=== PATIENT | female | born 1930 | race Caucasian/White ===

== ENCOUNTER 2017-02-02 18:00 | Inpatient (IN) | payer OTHER ==
[~2017-02-02] VITALS: Ht 165.1 cm; Wt 48.5 kg
[~2017-02-02 18:00] MED LIST: AMLODIPINE BESY10 MG PO; ATENOLOL50 MG PO; LEVOTHYROXIN0.112 M1 PO; LORAZEPAM0.5 MG PO; ZOLPIDEM TARTRAT5 MG PO
--- NOTE | 2017-02-02 18:10 | ED GENERAL ADULT ---
History of Present Illness General Chief Complaint: Fall Stated Complaint: FALL Source: patient, family Exam Limitations: patient's age, clinical condition Vital Signs & Intake/Output Vital Signs & Intake/Output Vital Signs Date Time Temp Pulse Resp B/P Pulse O2 O2 Flow FiO2 Ox Delivery Rate 02/03 2040 98.7 81 14 187/74 98 Nasal 2.0L Cannula 02/03 2032 98.2 79 20 187/74 99 Nasal 2.0L Cannula 02/02 1822 76 14 198/81 97 Room Air Allergies Coded Allergies: Penicillins (UNKNOWN 02/02/17) red dye (UNKNOWN 02/02/17) Reconcile Medications Amlodipine Besylate 5 MG TABLET 1 TAB PO DAILY HEART/BP (Reported) Atenolol 50 MG TABLET 1 TAB PO DAILY HEART/BP (Reported) Bisacodyl (Laxative) 5 MG TABLET 1 TAB PO AD GI (Reported) Docusate Sodium (Colace) 100 MG CAPSULE 1 CAP PO DAILY STOOL SOFTENER ( Reported) Furosemide 40 MG TABLET 1 TAB PO DAILY DIURETIC/BP (Reported) Levothyroxine Sodium 112 MCG TABLET 1 TAB PO DAILY THYROID (Reported) Loratadine (Claritin) 10 MG TABLET 1 TAB PO PRN ALLERGIES (Reported) Mometasone Furoate (Nasonex) 50 MCG SPRAY.PUMP 1-2 SPRAY KRISTIE AD PRN ALLERGIES/ NASAL CONGESTION (Reported) Triage Nurses Notes Reviewed? yes Onset: Abrupt Duration: hour(s): Timing: recent history HPI: 02/02/17 6:37 PM 86-year-old female presents to the emergency department status post fall. The patient has a history of CVA. She status post stroke with right-sided weakness. She was in rehabilitation at the nursing facility. She had a mechanical slip and fall and injured her right hip. The onset of the symptoms were abrupt, the duration was just today, the severity was significant as her symptoms required her to come to the emergency department for care. On physical exam she has a 1/ 4 inch superficial right sided occipital laceration. This does not require stitches. He was treated with bacitracin. She has no neck tenderness. She does have significant right-sided hip tenderness. The right hip is foreshortened and externally rotated. She has no abdominal pain or tenderness. (AARON MIXON DO) Past History Medical History Any Pertinent Medical History? see below for history Neurological: NONE EENT: NONE Cardiovascular: hypertension Respiratory: NONE Gastrointestinal: NONE Hepatic: NONE Renal: NONE Musculoskeletal: NONE Psychiatric: NONE Endocrine: hypothyroidism Blood Disorders: NONE Surgical History Surgical History: unobtainable Psychosocial History What is your primary language [place]ian Family History Hx Contributory? No (AARON MIXON DO) Review of Systems Review of Systems Constitutional: Denies: fever. EENTM: Denies: visual changes. Respiratory: Denies: short of breath. Cardiovascular: Denies: chest pain. GI: Denies: abdominal pain. Genitourinary: Reports: no symptoms. Musculoskeletal: Reports: see HPI. Skin: Reports: see HPI. Neurological/Psychological: Denies: headache. Hematologic/Endocrine: Denies: bleeding. (AARON MIXON DO) Physical Exam Physical Exam General Appearance: alert, awake, anxious, mild distress Head: active bleeding Eyes: Bilateral: normal appearance, PERRL, EOMI. Ears, Nose, Throat: normal ENT inspection Neck: normal inspection, supple, full range of motion Respiratory: normal breath sounds, chest non-tender, no respiratory distress Cardiovascular: regular rate/rhythm Peripheral Pulses: 4+ dorsalis pedis (R), 4+ dorsalis pedis (L) Gastrointestinal: non-tender Back: decreased range of motion Extremities: tenderness Neurologic/Psych: no motor/sensory deficits, awake, alert Skin: intact, normal color, warm/dry Core Measures ACS in differential dx? No CVA/TIA Diagnosis: No Severe Sepsis Present: No Septic Shock Present: No (AARON MIXON DO) Progress Differential Diagnoses I considered the following diagnoses in my evaluation of the patient: [Hip fracture intracranial bleed, other occult injuries] Plan of Care: Orders Procedure Date/time Status Nothing by Mouth 02/03 B Active CBC WITHOUT DIFFERENTIAL 02/03 06 Active BASIC ELECTROLYTES PLUS BUN&CR 02/03 06 Active Regular Diet 02/02 D Complete Saline Lock 02/02 2133 Active Pathway - chart 02/02 2133 Active House Staff 02/02 2133 Active Patient Data 02/02 2127 Active OXYGEN SETUP (GEN) 02/02 2035 Active Saline Lock 02/02 2035 Active Admit to inpatient 02/02 2035 Active Vital Signs 02/02 2035 Active Activity/Ambulation 02/02 2035 Active Code Status 02/02 2035 Active URINALYSIS 02/02 2033 Complete Lab Add-on Test 02/02 2009 Active Add-on Test (ER Only) 02/02 192 Active TROPONIN LEVEL 02/02 185 Complete Pak, Insertion/Removal/Asses 02/03 1836 Active CULTURE,URINE 02/03 1836 Active PROTHROMBIN TIME 02/03 1836 Complete COMPREHENSIVE METABOLIC PANEL 02/03 1836 Complete CBC WITHOUT DIFFERENTIAL 02/03 1836 Complete TYPE & SCREEN (NOT X-MATCH) 02/03 1836 Active EKG 02/02 180 Active VTE Mechanical Prophylaxis 02/02 UNK Active Current Medications Sig/[place] Start time Last Medication Dose Stop Time Status Admin Atenolol 50 MG DAILY 02/03 1000 UNVr (Tenormin) Dextrose/Sodium 1,000 ML Q13H 02/03 0000 UNVr Chloride (D5-Normal Saline) Oxycodone HCl 5 MG Q6 02/02 235 UNVr (Roxicodone) Heparin Sodium 5,000 UNIT Q8 02/02 2200 UNVr (Porcine) Senna/Docusate Sodium 2 TAB AT BEDTIME 02/02 2200 UNVr (Senokot S) Acetaminophen 650 MG Q6P PRN 02/02 214 UNVr (Tylenol) Diphenhydramine HCl 25 MG Q6P PRN 02/02 214 UNVr (Benadryl) Morphine Sulfate 2 MG Q4P PRN 02/02 2145 UNVr (Morphine) Polyethylene Glycol 17 GM AT BEDTIME PRN 02/02 2145 UNVr (Miralax) Prochlorperazine 10 MG Q6P PRN 02/02 2145 UNVr (Compazine) Morphine Sulfate 4 MG ONCE ONE 02/02 2130 UNVr (Morphine) 02/02 2131 Laboratory Tests 02/02/172104: Urinalysis HEAVY H, Urine Color STRAW, Urine Clarity CLDY H, Urine pH 8.0, Ur Specific [place] 1.015, Urine Protein NEG, Urine Ketones TRACE H, Urine Nitrite NEG, Urine Bilirubin NEG, Urine Urobilinogen 0.2, Ur Leukocyte Esterase NEG, Ur Microscopic SEDIMENT EXAMINED, Urine RBC 1-3, Urine WBC RARE, Ur Epithelial Cells RARE, Urine Hemoglobin TRACE-INTACT, Urine Glucose NEG 02/02/171856: Anion Gap 10, Estimated GFR > 60, BUN/Creatinine Ratio 28.3 H, Glucose 111 H, Calcium 9.9, Total Bilirubin 0.7, AST 28, ALT 44, Alkaline Phosphatase 92, Troponin I 0.01, Total Protein 7.5, Albumin 4.6, Globulin 2.9, Albumin/Globulin Ratio 1.6, PT 11.9, INR 1.13, CBC w Diff MAN DIFF ORDERED, RBC 4.64, MCV 95.9, MCH 32.1 H, RDW 13.6, MPV 6.2 L, Gran % 89.2 H, Lymphocytes % 5.5 L, Monocytes % 4.8, Eosinophils % 0.3, Basophils % 0.2, Absolute Granulocytes 18.9 H, Segmented Neutrophils 84 H, Absolute Lymphocytes 1.2, Lymphocytes 5 L, Monocytes 11 H, Absolute Monocytes 1.0 H, Absolute Eosinophils 0.1, Absolute Basophils 0, Platelet Estimate INCREASED, Normal RBC Morphology N, PUBS MCHC 33.5 Microbiology 02/02 2105 URINE ROUT: Urine Culture - RECD Initial ED EKG: pending (AARON MIXON DO) Departure Departure Disposition: STILL A PATIENT Condition: Stable Referrals: RIGO JAMESON MD (PCP/Family) Departure Forms: Customer Survey General Discharge Information Comments X-ray of the right hip - PATIENT: CAYLAApril PRESENT AGE: 86 PATIENT ACCOUNT NO: [id number] : [birth year] LOCATION: [facility] ORDERING PHYSICIAN: AARON MIXON DO SERVICE DATE: 02/02/17 EXAM TYPE: RAD - XRY-CHEST XRAY, ONE VIEW ONLY; XRY-HIP 2-3 VIEWS, RIGHT EXAMINATION:\H\ \N\XR CHEST RIGHT HIP CLINICAL INFORMATION: Fall. Aspiration. COMPARISON: None TECHNIQUE: Supine frontal view of the chest 2 views right hip. FINDINGS: Chest: Mild rotation to the left. Slightly tortuous aorta. The cardiac size skip and vasculature are within normal limits. There is no consolidation. No pleural fluid or pneumothorax. The diaphragm contour is smooth. No acute displaced thoracic fracture demonstrated Right hip: There is a displaced subcapital right femoral fracture. The distal fracture fragment is displaced superiorly and laterally. No definite underlying lesion. The femoral head contour appears smooth. Sclerotic area in the right iliac bone may be a bone island but is nonspecific. IMPRESSION: Displaced subcapital right proximal femoral fracture No pneumonia or pneumothorax DICTATED BY: MIKIE MONROE MD DATE/TIME DICTATED:02/02/171946 BOOM OPERATOR:HELEN DATE/TIME TRANSCRIBED:02/02/171946 CONFIDENTIAL, DO NOT COPY WITHOUT APPROPRIATE AUTHORIZATION. <Electronically signed in Other Vendor System> SIGNED BY: MIKIE MONROE MD 02/02/171952 The patient was signed out to Dr. Leon at 7 PM. Labs were pending. She received IV fluids and IV morphine for pain control. (AARON MIXON DO) Departure Clinical Impression Primary Impression: Hip fracture Secondary Impressions: Fall, Leukocytosis, unspecified Admission Note Spoke With: DESTINY GARCIA MD Documentation of Exam: Documentation of any treatments & extenuating circumstances including Concerns Regarding Discharge (functional status, medication knowledge or non-compliance, living conditions, etc.) that warrant an admission rather than observation: Nothing by mouth IV analgesia follow cultures medical clearance orthopedic evaluation and management for fracture continuing care discharge planning (MARIA D LEON MD) Critical Care Note Critical Care Note Critical Care Time: 30-74 min (AARON MIXON DO)
[2017-02-02] MEDS ORDERED: FUROSEMIDE40 M1 PO (18:29)
[2017-02-02] MEDS ORDERED: ATENOLOL50 M1 PO (18:29)
[2017-02-02] MEDS ORDERED: CLARITIN10 M1 PO (18:30)
[2017-02-02] MEDS ORDERED: AMLODIPINE BESYL5 M1 PO (18:30)
[2017-02-02] MEDS ORDERED: LEVOTHYROXINE112 MCG PO (18:30)
[2017-02-02] MEDS ORDERED: NASONEX17 GM NAS (18:31)
[2017-02-02] MEDS ORDERED: COLACE100 M1 PO (18:31)
[2017-02-02] MEDS ORDERED: [UNRECOGNIZED DRUG - OTHER] AD (18:44)
[2017-02-02] MEDS ORDERED: LAXATIVE PO (19:16)
[2017-02-02 19:21] LABS: ABSOLUTE BASOPHIL COUNT 0 /CUMM (0.0-0.2); ABSOLUTE EOSINOPHIL COUNT 0.1 /CUMM (0.0-0.7); ABSOLUTE GRANULOCYTE CT 18.9 /CUMM (1.4-6.5); ABSOLUTE LYMPH COUNT 1.2 /CUMM (1.2-3.4); BASOPHIL % 0.2 % (0.0-2.0); EOSINOPHIL % 0.3 % (0-5); GRANULOCYTE % 89.2 % (42.2-75.2); HEMATOCRIT 44.5 % (37-47); MEAN CORPUSCULAR HGB 32.1 PG (27.0-31.0); MEAN CORPUSCULAR HGB CONC 33.5 G/DL (33.0-37.0); MEAN CORPUSCULAR VOLUME 95.9 FL (81.0-99.0); MEAN PLATELET VOLUME 6.2 FL (7.4-10.4); PLATELET COUNT 814 /CUMM (130-400); RBC DISTRIBUTION WIDTH 13.6 % (11.5-14.5); RED BLOOD CELL CT 4.64 /CUMM (4.20-5.40); WHITE BLOOD CELL COUNT 21.2 /CUMM (4.8-10.8)
--- NOTE | 2017-02-02 19:48 | CT SCAN REPORT ---
EXAMINATION: CT PELVIS WITHOUT CONTRAST CLINICAL INFORMATION: Fall. Trauma. COMPARISON: None TECHNIQUE: Helical scanning was performed with submillimeter collimation through the pelvis. Sagittal and coronal multiplanar 2-D reconstructions were obtained. DLP: 1001 mGy-cm FINDINGS: PELVIS: There is a displaced subcapital right femoral neck fracture. There is superior and ventral displacement of the distal fracture fragment. The articular surface of the femoral head articulates with the acetabulum and appears primarily intact. The intratrochanteric region appears intact. There is no disruption of the SI joints symphysis or left hip. There is no other acute fracture. There are perineural cysts in the sacrum. There is an irregular sclerotic focus in the right iliac bone near the SI joint perhaps a bone island. There are degenerative changes in the visualized lower spine. There is no evidence of hemoperitoneum. There is no suspicious pelvic mass. A balloon catheter decompresses the urinary bladder. The uppermost images include some circumscribed low attenuating lesions in the lower right lobe liver likely cysts. There may be a cyst partially included arising from the ventral lower left kidney. There is atherosclerotic calcification. I suspect pelvic floor relaxation. The region of the uterus is not well evaluated. IMPRESSION: Displaced subcapital right proximal femoral fracture
--- NOTE | 2017-02-02 19:53 | RADIOLOGY REPORT ---
EXAMINATION:\H\ \N\XR CHEST RIGHT HIP CLINICAL INFORMATION: Fall. Aspiration. COMPARISON: None TECHNIQUE: Supine frontal view of the chest 2 views right hip. FINDINGS: Chest: Mild rotation to the left. Slightly tortuous aorta. The cardiac size skip and vasculature are within normal limits. There is no consolidation. No pleural fluid or pneumothorax. The diaphragm contour is smooth. No acute displaced thoracic fracture demonstrated Right hip: There is a displaced subcapital right femoral fracture. The distal fracture fragment is displaced superiorly and laterally. No definite underlying lesion. The femoral head contour appears smooth. Sclerotic area in the right iliac bone may be a bone island but is nonspecific. IMPRESSION: Displaced subcapital right proximal femoral fracture No pneumonia or pneumothorax
--- NOTE | 2017-02-02 19:53 | CT SCAN REPORT ---
EXAMINATION: CT HEAD AND CERVICAL SPINE WITHOUT CONTRAST CLINICAL INFORMATION: Status post fall. Evaluate for acute intracranial hemorrhage. COMPARISON: None. TECHNIQUE: Contiguous axial imaging was performed from the thoracic inlet to the vertex without intravenous administration of contrast. DLP: 920 mGy-cm. FINDINGS: Head: No acute intracranial abnormality. No acute intracranial hemorrhage, mass or mass effect or abnormal extra-axial fluid collections. The density within the dural venous sinuses is within normal limits. The ventricles are normal in size, without hydrocephalus. There are no focal areas of hypoattenuation within a vascular distribution to suggest acute transcortical ischemia. The basilar cisterns are patent. No acute calvarial abnormality is identified. Soft tissues appear unremarkable. The imaged paranasal sinuses and mastoid air cells are well aerated. Cervical spine: Images of the cervical spine are somewhat limited secondary to artifacts, notably through the C2 vertebral body. The cortical step-off identified along the anterior aspect of C2 on series 602, image 33 does not persist on coronal or axial CT images of the cervical spine and is favored corresponds to artifact. There is moderate to severe multilevel degenerative disc disease of the cervical spine, most significant at the atlantoaxial articulation as well as at C5-C6 and C6-C7. No acute cervical spine fracture is identified. Cervical spine alignment appears grossly maintained. Prevertebral soft tissues are within normal limits. Incidental note is made of fusion of the right facets of C2-C4, likely secondary to underlying degenerative changes of the cervical spine. IMPRESSION: 1. No acute intracranial abnormality. 2. Multilevel degenerative changes of the cervical spine without evidence of acute cervical spine fracture or subluxation.
[2017-02-02 20:09] LABS: PT 11.9 SEC (9.4-12.5)
--- NOTE | 2017-02-02 21:34 | Cons- Orthopedic ---
SORIN SMALLS 02/02/17 2128: General Information and HPI Consulting Request Date of Consult: 02/02/17 Requested By: Emergency department staff Reason for Consult: Right hip fracture Source of Information: patient, family Exam Limitations: unable to give history, confusion, poor historian History of Present Illness: This is an 86-year-old female status post an unwitnessed fall at a assisted living facility. The patient was seen and really can't remember falling or what caused her fall. She activated her life alert system and was brought to the emergency department by EMS. She complains of some right lower extremity pain as well as a minor headache. She had no other complaints at the current time. Per the family she had been feeling somewhat weak over the past few days ago for no other additional information with regards to this episode. Allergies/Medications Allergies: Coded Allergies: Penicillins (UNKNOWN 02/02/17) red dye (UNKNOWN 02/02/17) Home Med List: Amlodipine Besylate 5 MG TABLET 1 TAB PO DAILY HEART/BP (Reported) Atenolol 50 MG TABLET 1 TAB PO DAILY HEART/BP (Reported) Bisacodyl (Laxative) 5 MG TABLET 1 TAB PO AD GI (Reported) Docusate Sodium (Colace) 100 MG CAPSULE 1 CAP PO DAILY STOOL SOFTENER ( Reported) Furosemide 40 MG TABLET 1 TAB PO DAILY DIURETIC/BP (Reported) Levothyroxine Sodium 112 MCG TABLET 1 TAB PO DAILY THYROID (Reported) Loratadine (Claritin) 10 MG TABLET 1 TAB PO PRN ALLERGIES (Reported) Mometasone Furoate (Nasonex) 50 MCG SPRAY.PUMP 1-2 SPRAY KRISTIE AD PRN ALLERGIES/ NASAL CONGESTION (Reported) Past History Medical History Neurological: NONE EENT: NONE Cardiovascular: hypertension Respiratory: NONE Gastrointestinal: NONE Hepatic: NONE Renal: NONE Musculoskeletal: NONE Psychiatric: NONE Endocrine: hypothyroidism Blood Disorders: NONE Surgical History Pertinent Surgical History: unobtainable Psychosocial History Where Do You Live? Assisted Living Smoking Status: Unknown If Ever Smoked ETOH Use: denies use Functional Ability ADLs Independent: dressing, eating, toileting, bathing. Ambulation: independent IADLs Needs Assist: shopping, housework, finances, food prep, telephone, transportation, medication admin. Review of Systems Review of Systems Cardiovascular: Denies: chest pain, palpitations. Respiratory: Denies: cough, short of breath. GI: Denies: abdominal pain, changes in stool. Exam & Diagnostic Data Vital Signs and I&O Vital Signs Date Time Temp Pulse Resp B/P Pulse O2 O2 Flow FiO2 Ox Delivery Rate 02/03 2040 98.7 81 14 187/74 98 Nasal 2.0L Cannula 02/03 2032 98.2 79 20 187/74 99 Nasal 2.0L Cannula 02/02 1822 76 14 198/81 97 Room Air Laboratory Tests 02/025 1857 Chemistry Sodium (137 - 145 mmol/L) 142 Potassium (3.5 - 5.1 mmol/L) 3.8 Chloride (98 - 107 mmol/L) 99 Carbon Dioxide (22 - 30 mmol/L) 33 H Anion Gap (5 - 16) 10 BUN (7 - 17 mg/dL) 17 Creatinine (0.5 - 1.0 mg/dL) 0.6 Estimated GFR (>60 ml/min) > 60 BUN/Creatinine Ratio (7 - 25 %) 28.3 H Glucose (65 - 99 mg/dL) 111 H Calcium (8.4 - 10.2 mg/dL) 9.9 Total Bilirubin (0.2 - 1.3 mg/dL) 0.7 AST (14 - 36 U/L) 28 ALT (9 - 52 U/L) 44 Alkaline Phosphatase (<127 U/L) 92 Troponin I (< 0.11 ng/ml) 0.01 Total Protein (6.3 - 8.2 g/dL) 7.5 Albumin (3.5 - 5.0 g/dL) 4.6 Globulin (1.9 - 4.2 gm/dL) 2.9 Albumin/Globulin Ratio (1.1 - 2.2 %) 1.6 Coagulation PT (9.4 - 12.5 SEC) 11.9 INR (0.90 - 1.19) 1.13 Hematology CBC w Diff MAN DIFF ORDERED WBC (4.8 - 10.8 /CUMM) 21.2 H RBC (4.20 - 5.40 /CUMM) 4.64 Hgb (12.0 - 16.0 G/DL) 14.9 Hct (37 - 47 %) 44.5 MCV (81.0 - 99.0 FL) 95.9 MCH (27.0 - 31.0 PG) 32.1 H RDW (11.5 - 14.5 %) 13.6 Plt Count (130 - 400 /CUMM) 814 H MPV (7.4 - 10.4 FL) 6.2 L Gran % (42.2 - 75.2 %) 89.2 H Lymphocytes % (20.5 - 51.1 %) 5.5 L Monocytes % (1.7 - 9.3 %) 4.8 Eosinophils % (0 - 5 %) 0.3 Basophils % (0.0 - 2.0 %) 0.2 Absolute Granulocytes (1.4 - 6.5 /CUMM) 18.9 H Segmented Neutrophils (42.2 - 75.2 %) 84 H Absolute Lymphocytes (1.2 - 3.4 /CUMM) 1.2 Lymphocytes (20.5 - 51.1 %) 5 L Monocytes (1.7 - 9.3 %) 11 H Absolute Monocytes (0.10 - 0.60 /CUMM) 1.0 H Absolute Eosinophils (0.0 - 0.7 /CUMM) 0.1 Absolute Basophils (0.0 - 0.2 /CUMM) 0 Platelet Estimate (ADEQUATE) INCREASED Normal RBC Morphology N PUBS MCHC (33.0 - 37.0 G/DL) 33.5 Urines Urinalysis HEAVY H Urine Color (YEL,AMB,STR) STRAW Urine Clarity (CLEAR) CLDY H Urine pH (5.0 - 8.0) 8.0 Ur Specific [place] (1.001 - 1.035) 1.015 Urine Protein (NEG,<30 MG/DL) NEG Urine Ketones (NEG) TRACE H Urine Nitrite (NEG) NEG Urine Bilirubin (NEG) NEG Urine Urobilinogen (0.1 - 1.0 EU/dl) 0.2 Ur Leukocyte Esterase (NEG) NEG Ur Microscopic SEDIMENT EXAMINED Urine RBC (0 - 5 /HPF) 1-3 Urine WBC (0 - 2 /HPF) RARE Ur Epithelial Cells (NONE,FEW) RARE Urine Hemoglobin (NEG) TRACE-INTACT Urine Glucose (N MG/DL) NEG Imaging studies showing a displaced right subcapital femoral fracture Physical Exam: Gen.: Alert but confused and in no obvious distress Skin: Warm and dry without jaundice Cardiac: S1-S2 regular Pulmonary: Bilateral breath sounds are equal with good exchange and some upper respiratory congestion clears with cough. Extremities: Bilateral lower extremities were warm without calf tenderness or significant edema. Gross motor and sensory were intact. There is tenderness over the right hip joint with some mild edema. All 4 compartments are soft and the overlying skin was intact. Right lower extremity was slightly shortened but not rotated. Assessment/Plan Assessment/Plan Assessment: 86 old female status post unwitnessed fall who sustained a right femoral fracture. The case was discussed with Dr. Crain. Recommendations: The patient should be admitted to the medical service for optimization and risk stratification. Should the patient be deemed acceptable candidate she'll be brought to the operating theater once cleared. Keep nothing by mouth past midnight Strict bed rest PRN pain medications Care per primary team Problem List: 1. Hip fracture Consult Acknowledgment - Thank you for your consult request. COBY CRAIN MD 02/03/17 1238: Assessment/Plan Consult Acknowledgment - Thank you for your consult request. Attending MD Review Statement Attending Statement Attending Statement: examined this patient, discuss w/resident/PA/NETWORK DESIGNER, discussed with family, reviewed images Attending Assessment/Plan: Patient seen and examined, daughter Guillermina at bedside. Pain controlled, patient very demented. 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 Exam: tender to palpation of right hip; no abrasions or ecchymosis noted. Intact ankle DF/PF/EHL. Sensation reported intact in bilateral feet. No left leg pain or tenderness. Moving bilateral upper extremities without difficulty. A/P: 86yo F with right femoral neck fracture; plan for right hip hemiarthroplasty NWB RLE Pain control maintain cortez Hold anticoagulation, SCDS in bed Plan for OR for right hip hemiarthroplasty with Dr. Manzo; consent obtained from daughter/POA.
--- NOTE | 2017-02-02 21:48 | History & Physical ---
NICOLE SINGLETON,SHERRI 02/02/17 2147: General Information and HPI MD Statement: I have seen and personally examined CAYLAAPRIL A and documented this H&P. The patient is a 86 year old F who presented with a patient stated chief complaint of [FALL]. Source of Information: patient, family Exam Limitations: unable to give history, confusion, poor historian History of Present Illness: This is an 86-year-old female past medical history of right-sided CVA with deficits (2016), dementia, hypertension, hypothyroidism, treated for cellulitis in her lower extremity one month ago, who presents with CC fall. Most of the history is obtained from patient's daughters in the room as patient is a poor historian. Per daughter, she got a call after patient was found on floor. She had been trying to ambulate without her walker and sustained an unwitnessed fall from standing height, subsequently activated life-alert for assistance. This is her third fall since October. Daughters note that patient seems to be getting progressively more confused and requiring more assistance since her CVA. Patient did hit her head but no bladder or bowel incontinence noted. She is unable to provide more details such as dizziness, headache, palpitations or any other symptom. Patient is awake but confused and endorses pain in her right lower extremity. Allergies/Medications Allergies: Coded Allergies: Penicillins (UNKNOWN 02/02/17) red dye (UNKNOWN 02/02/17) Home Med list Amlodipine Besylate 5 MG TABLET 1 TAB PO DAILY HEART/BP (Reported) Atenolol 50 MG TABLET 1 TAB PO DAILY HEART/BP (Reported) Bisacodyl (Laxative) 5 MG TABLET 1 TAB PO AD GI (Reported) Docusate Sodium (Colace) 100 MG CAPSULE 1 CAP PO DAILY STOOL SOFTENER ( Reported) Furosemide 40 MG TABLET 1 TAB PO DAILY DIURETIC/BP (Reported) Levothyroxine Sodium 112 MCG TABLET 1 TAB PO DAILY THYROID (Reported) Loratadine (Claritin) 10 MG TABLET 1 TAB PO PRN ALLERGIES (Reported) Mometasone Furoate (Nasonex) 50 MCG SPRAY.PUMP 1-2 SPRAY KRISTIE AD PRN ALLERGIES/ NASAL CONGESTION (Reported) Compliance With Home Meds: GOOD Past History Travel History Traveled to [place] past 21 day No Medical History Neurological: NONE EENT: NONE Cardiovascular: hypertension Respiratory: NONE Gastrointestinal: NONE Hepatic: NONE Renal: NONE Musculoskeletal: NONE Psychiatric: NONE Endocrine: hypothyroidism Blood Disorders: NONE Tetanus Vaccine: 02/02/17 Surgical History Surgical History: unobtainable Past Family/Social History Psychosocial History Where do you live? Assisted Living Smoking Status: Unknown If Ever Smoked ETOH Use: denies use Illicit Drug Use: denies illicit drug use Functional Ability ADLs Independent: dressing, eating, toileting, bathing. Ambulation: independent IADLs Needs Assist: shopping, housework, finances, food prep, telephone, transportation, medication admin. Review of Systems Review of Systems Constitutional: Reports: no symptoms. Comments Patient is a poor historian as such review of systems not obtainable. She endorses and denies the same complaint within 5 minutes. However, she does insistently endorse pain in her right lower extremity, and some tenderness in her head. Exam & Diagnostic Data Last 24 Hrs of Vital Signs/I&O Vital Signs Date Time Temp Pulse Resp B/P Pulse O2 O2 Flow FiO2 Ox Delivery Rate 02/03 0029 95 Nasal 2.0L Cannula 02/03 0000 Nasal 2.0L Cannula 02/02 2302 99.3 73 20 142/72 97 Nasal 2.0L Cannula 02/02 2040 98.7 81 14 187/74 98 Nasal 2.0L Cannula 02/02 2032 98.2 79 20 187/74 99 Nasal 2.0L Cannula 02/02 1822 76 14 198/81 97 Room Air Intake & Output 02/03 0800 02/03 0000 02/02 1600 Intake Total 1000 Output Total 800 Balance 200 Intake, IV 1000 Intake, Oral 0 Output, Urine 800 Patient 61.235 kg 54.431 kg Weight Physical Exam General Appearance Cooperative, awake, confused not oriented Skin No Significant Lesion HEENT Atraumatic, PERRLA, EOMI Neck Supple Cardiovascular Regular Rate, Normal S1, Normal S2, No Murmurs Lungs Normal Air Movement Abdomen Soft, No Tenderness Neurological Sensation Intact, decreased strength and mvmt in rle. Extremities decreased strength and movement right lower extremity. No erythema noted. Was unable to move patient on her sdie due to severe pain to check for any hematomas on her buttocks Last 24 Hrs of Labs/[place]: Laboratory Tests 02/02/175: Urinalysis HEAVY H, Urine Color STRAW, Urine Clarity CLDY H, Urine pH 8.0, Ur Specific [place] 1.015, Urine Protein NEG, Urine Ketones TRACE H, Urine Nitrite NEG, Urine Bilirubin NEG, Urine Urobilinogen 0.2, Ur Leukocyte Esterase NEG, Ur Microscopic SEDIMENT EXAMINED, Urine RBC 1-3, Urine WBC RARE, Ur Epithelial Cells RARE, Urine Hemoglobin TRACE-INTACT, Urine Glucose NEG 02/02/17 1857: Anion Gap 10, Estimated GFR > 60, BUN/Creatinine Ratio 28.3 H, Glucose 111 H, Calcium 9.9, Total Bilirubin 0.7, AST 28, ALT 44, Alkaline Phosphatase 92, Troponin I 0.01, Total Protein 7.5, Albumin 4.6, Globulin 2.9, Albumin/Globulin Ratio 1.6, PT 11.9, INR 1.13, CBC w Diff MAN DIFF ORDERED, RBC 4.64, MCV 95.9, MCH 32.1 H, RDW 13.6, MPV 6.2 L, Gran % 89.2 H, Lymphocytes % 5.5 L, Monocytes % 4.8, Eosinophils % 0.3, Basophils % 0.2, Absolute Granulocytes 18.9 H, Segmented Neutrophils 84 H, Absolute Lymphocytes 1.2, Lymphocytes 5 L, Monocytes 11 H, Absolute Monocytes 1.0 H, Absolute Eosinophils 0.1, Absolute Basophils 0, Platelet Estimate INCREASED, Normal RBC Morphology N, PUBS MCHC 33.5 Microbiology 02/02 2105 URINE ROUT: Urine Culture - RECD Assessment/Plan Assessment: This is an 86-year-old female past medical history significant for CVA with right-sided deficit, hypertension, hypothyroidism, recent cellulitis, who comes to [facility] s/p unwitnessed fall from standing height in the ECF. ED Workup shows: Chest x-ray with no acute intrathoracic abnormality. CT negative for hemorrhage. CT of spine pelvis and extremity showed displaced subcapital right proximal femur fracture. Vitals: 98.7, 81, 14, 198/81, 97. INR 1.13. CBC: Hemoglobin 14.9, hematocrit 44.5. White count 21.2 BUN/creatinine 17/ 0.6. Negative LFTs. PLAN 1. Fall with displaced subcapital right proximal femur fracture: Patient scheduled for orthopedic intervention in a.m pending medical clearance. INR 1.13. * Nothing by mouth at midnight * Procedure in a.m. * Strict bedrest * Orthopedic consult * Obtain medical clearance 2. Leukocytosis: Patient has white count 21.2. No bands. Likely this is reactive as patient is afebrile and sustained recent trauma. Continue to monitor. * Monitor with CBC * Hold off antibiotics 3. Thrombocytosis: Patient has blood count 814. Likely reactive, but still quite elevated. Continue to monitor closely. * Monitor with CBC 4. Hypertension: Patient's blood pressure 198/81. * Resume home blood pressure regimen DNR/DNI NPO CHEMICAL DVT PPX As Ranked By This Provider Problem List: 1. Fall Core Measures/Miscellaneous Acute Coronary Syndrome ACS Diagnosis: No Cerebrovascular Accident CVA/TIA Diagnosis: No Congestive Heart Failure CHF Diagnosis: No Venous Thromboembolism VTE Risk Factors: Acute medical illness, Age > 40 [facility] prophylaxis d/t: No contraindications No VTE Pharm Prophylaxis d/t: No contraindications VTE Diagnosis: No VTE Type: NONE VTE Confirmed by (Test): NONE Severe Sepsis Severe Sepsis Present: No Septic Shock Septic Shock Present: No Miscellaneous Documentation Attending Case Discussed With: DESTINY GARCIA MD Primary Care Physician: RIGO JAMESON MD Patient sees these Specialists UNKNOWN Level of Patient Care: General Medicine Consults Needed: Consulting Specialty: Orthopedics MEHDI NIÑO MD 02/03/17 0150: Resident Review Statement Resident Statement: examined this patient, discussed with legal summer intern, agreed with legal summer intern, discussed with family, reviewed EMR data (avail), discussed with nursing , discussed with case mgmt, reviewed images, amended to note Other Findings: Lorteta is an 86-year-old woman with a medical history of hypertension hypothyroidism who experienced an unwitnessed fall at an assisted living facility. She is a limited historian. She activated her life alert system in approximately January department by EMS. She may have some right lower extremity pain as well as minor headache she had no other complaints at current time. Her daughters are in the room and provide collateral history stating that they feel that she has been feeling weak over the past few days and cannot provide any other information regards to the fall. Vital signs are stable. Blood pressure 187/74. She is awake alert but confused and in no acute distress. Positive S1- S2. Bilateral breath sounds are present and equal consistent with good airway entry. Tenderness over the right hip joint noted some mild edematous changes. Labs notable for white count 21,000, platelet count of 814,000. Imaging studies revealed displaced subcapital right proximal femoral fracture. We'll admit the patient general medicine floor, ensure adequate pain control, Keep nothing by mouth at midnight. DVT prophylaxis at all times with heparin subcutaneous. Orthopedic surgical consultation. DNR/DNI JOSE SINGLETON,[facility] 02/03/17 0941: Attending MD Review Statement Attending Statement Attending MD Statement: examined this patient, discuss w/resident/PA/MEDICAL ESTHETICIAN, agreed w/resident/PA/MEDICAL ESTHETICIAN, discussed with family, reviewed EMR data (avail)
[2017-02-02 23:02] VITALS: BP 142/72
[2017-02-03 06:19] VITALS: BP 160/72
[2017-02-03 06:48] LABS: ABSOLUTE BASOPHIL COUNT 0.1 /CUMM (0.0-0.2); ABSOLUTE EOSINOPHIL COUNT 0.1 /CUMM (0.0-0.7); ABSOLUTE GRANULOCYTE CT 12.7 /CUMM (1.4-6.5); ABSOLUTE LYMPH COUNT 1.1 /CUMM (1.2-3.4); BASOPHIL % 0.4 % (0.0-2.0); EOSINOPHIL % 0.8 % (0-5); MEAN CORPUSCULAR HGB 32.1 PG (27.0-31.0); MEAN CORPUSCULAR HGB CONC 33.2 G/DL (33.0-37.0); MEAN CORPUSCULAR VOLUME 96.7 FL (81.0-99.0); MEAN PLATELET VOLUME 6.2 FL (7.4-10.4); PLATELET COUNT 696 /CUMM (130-400); RBC DISTRIBUTION WIDTH 13.6 % (11.5-14.5); RED BLOOD CELL CT 4.14 /CUMM (4.20-5.40)
--- NOTE | 2017-02-03 07:21 | PN- Housestaff ---
Subjective Follow-up For: Right femoral neck fracture Subjective: Patient was seen and examined this morning, she is oriented to self, reported right hip pain, denied hip pain, nausea, vomiting, abdominal pain, chest pain. Daughter is at bedside. Patient is nothing by mouth for surgery this evening at 6 PM as she is added onto the OR schedule. Vital signs are stable, no overnight events reported by the nurse. Review of Systems Constitutional: Reports: see HPI. Objective Last 24 Hrs of Vital Signs/I&O Vital Signs Date Time Temp Pulse Resp B/P Pulse O2 O2 Flow FiO2 Ox Delivery Rate 02/03 1623 99.4 70 16 22/60 02/03 1423 99.0 64 18 160/60 97 Nasal 2.0L Cannula 02/03 0859 Nasal 2.0L Cannula 02/03 0800 97 Nasal 2.0L Cannula 02/03 0619 99.5 69 18 160/72 97 Nasal 2.0L Cannula 02/03 0029 95 Nasal 2.0L Cannula 02/03 0000 Nasal 2.0L Cannula 02/02 2302 99.3 73 20 142/72 97 Nasal 2.0L Cannula 02/02 2040 98.7 81 14 187/74 98 Nasal 2.0L Cannula 02/02 2032 98.2 79 20 187/74 99 Nasal 2.0L Cannula 02/02 1822 76 14 198/81 97 Room Air Intake & Output 02/03 1600 02/03 0800 02/03 0000 Intake Total 489 339 0158 Output Total 400 350 800 Balance 250 250 200 Intake, IV 299 636 6323 Intake, Oral 0 0 0 Number 0 Bowel Movements Output, Urine 400 350 800 Patient 61.235 kg 54.431 kg Weight Physical Exam General Appearance: Alert, Cooperative, No Acute Distress Skin: No Rashes, No Breakdown, No Significant Lesion HEENT: Atraumatic, PERRLA, EOMI, Mucous Membr. moist/pink Neck: Supple, No JVD Cardiovascular: Regular Rate, Normal S1, Normal S2, No Murmurs Lungs: Clear to Auscultation, Normal Air Movement Abdomen: Normal Bowel Sounds, Soft, No Tenderness Neurological: Normal Speech, Strength at 5/5 X4 Ext, Normal Tone, Sensation Intact, Cranial Nerves 3-12 NL, Reflexes 2+ Extremities: No Clubbing, No Cyanosis, No Edema, Normal Pulses Assessment/Plan Assessment: Ms. Bepko is 86 year old female with past medical history significant for CVA with right-sided deficit, hypertension, hypothyroidism who presented to ED after an unwitnessed fall from standing height STR and sustained right femoral neck fracture PLAN #Fall with displaced subcapital right proximal femur fracture * Patient was medically clear * Nothing by mouth for hemiarthroplasty at 6 PM this evening * Continue optimal pain control * Orthopedic surgery consultation was obtained, thanks the recommendation #Leukocytosis and thrombocytosis * Needs outpatient workup * No signs of infection #Hypertension * Continue home medication Lasix and Norvasc was added #Hypothyroidism * Continue Synthroid DNR/DNI NPO CHEMICAL DVT PPX Problem List: 1. Fall 2. Leukocytosis, unspecified 3. Hip fracture Pain Ratin Pain Location: Right hip Pain Goal: Pain 4 or less Pain Plan: Severe pain pathway Tomorrow's Labs & Rationales: CBC, CMP Consulting Request: Consulting Specialty: Orthopedics
--- NOTE | 2017-02-03 09:36 | Admission Certification ---
Admission Certification Certification Statement - As attending physician, I certify that at the time of - admission, based on clinical presentation, severity of - symptoms, need for further diagnostic testing and - therapeutic interventions, and risk of adverse outcomes - without in-hospital treatment, in my clinical assessment, - this patient requires an acute hospital stay for a minimum - of two nights or longer. I have also considered psychsocial - factors such as support system, advanced age, financial - issues, cognitive issues, and failed out-patient treatments, - past re-admission history, safety of patient, and lack of - compliance as applicable. Specific rationale supporting this admission is: right hip fracture
--- NOTE | 2017-02-03 09:41 | PN- Att Addend ---
Attending Addendum Attending Brief Note Patient has minimal pain in her right hip. According to the daughter patient is confused more than her baseline. General Appearance: Alert, No Acute Distress Skin: Grossly normal HEENT: PEERLA Neck: Supple, No JVD Cardiovascular: Regular Rate, Normal S1, Normal S2, No Murmurs Lungs: Clear to Auscultation, Normal Air Movement Abdomen: Normal Bowel Sounds, Soft, No Tenderness Neurological: Normal Speech, Strength at 5/5 X4 Ext, Cranial Nerves 3-12 NL, Reflexes 2+ Extremities: No Clubbing, No Cyanosis, No Edema Vascular: Normal Pulses Assessment 86-year-old with history of right-sided CVA, dementia, hypertension having weakness 2 weeks prior to this presentation and possible UTI presenting status post fall likely mechanical. X-ray suggested right hip fracture. Leukocytosis on presentation likely reactive that is now trending down. Patient is otherwise moderate risk for perioperative cardiac morbidity and mortality. There is no indication for further cardiac investigation. Patient is cleared for surgery. Plan Patient medically cleared for surgery Follow urine culture Follow off antibiotics IV hydration pending surgery Minimal pain meds Continue other home meds Start Coumadin postoperative Current Medications Sig/Wisam Start time Last Medication Dose Route Stop Time Status Admin Acetaminophen 650 MG Q6P PRN 02/02 2145 AC PO Atenolol 50 MG DAILY 02/03 1000 AC PO Dextrose/Sodium 1,000 ML Q13H 02/03 0000 AC 02/03 Chloride IV 0006 Diphenhydramine HCl 25 MG Q6P PRN 02/02 2145 AC IV Heparin Sodium 5,000 UNIT Q8 02/02 2200 AC 02/03 (Porcine) SC 0009 Morphine Sulfate 2 MG Q4P PRN 02/02 2145 AC 02/03 IV 0456 Morphine Sulfate 0 .STK-MED ONE 02/02 2133 DC .ROUTE Morphine Sulfate 4 MG ONCE ONE 02/02 2130 DC 02/02 IV 02/02 Morphine Sulfate 2 MG ONCE ONE 02/02 1900 DC 02/02 IV 02/02 Morphine Sulfate 0 .STK-MED ONE 02/02 1855 DC .ROUTE Ondansetron HCl 0 .STK-MED ONE 02/02 1836 DC .ROUTE Oxycodone HCl 5 MG Q6P PRN 02/02 2359 AC PO Polyethylene Glycol 17 GM AT BEDTIME NEED.. 02/02 2145 AC PO Potassium Chloride 10 MEQ ONCE ONE 02/03 0730 DC 02/03 IV 02/03 0731 0824 Prochlorperazine 10 MG Q6P PRN 02/02 2145 AC IV Senna/Docusate Sodium 2 TAB AT BEDTIME 02/02 2200 AC 02/03 PO 0009 Sodium Chloride 1,000 ML ONCE ONE 02/02 1845 DC 02/02 IV 02/03 0124 8 Tetanus/Diphtheria 0 .STK-MED ONE 02/03 2120 DC Toxoids Adsorbed IM Tetanus/Diphtheria 0.5 ML ONCE ONE 02/02 1845 DC 02/02 Toxoids Adsorbed IM 02/02 Laboratory Tests 02/03 Chemistry Sodium (137 - 145 mmol/L) 142 Potassium (3.5 - 5.1 mmol/L) 3.6 Chloride (98 - 107 mmol/L) 103 Carbon Dioxide (22 - 30 mmol/L) 35 H Anion Gap (5 - 16) 4 L BUN (7 - 17 mg/dL) 11 Creatinine (0.5 - 1.0 mg/dL) 0.6 Estimated GFR (>60 ml/min) > 60 BUN/Creatinine Ratio (7 - 25 %) 18.3 Hematology CBC w Diff NO MAN DIFF REQ WBC (4.8 - 10.8 /CUMM) 15.0 H RBC (4.20 - 5.40 /CUMM) 4.14 L Hgb (12.0 - 16.0 G/DL) 13.3 Hct (37 - 47 %) 40.0 MCV (81.0 - 99.0 FL) 96.7 MCH (27.0 - 31.0 PG) 32.1 H RDW (11.5 - 14.5 %) 13.6 Plt Count (130 - 400 /CUMM) 696 H MPV (7.4 - 10.4 FL) 6.2 L Gran % (42.2 - 75.2 %) 85.0 H Lymphocytes % (20.5 - 51.1 %) 7.0 L Monocytes % (1.7 - 9.3 %) 6.8 Eosinophils % (0 - 5 %) 0.8 Basophils % (0.0 - 2.0 %) 0.4 Absolute Granulocytes (1.4 - 6.5 /CUMM) 12.7 H Absolute Lymphocytes (1.2 - 3.4 /CUMM) 1.1 L Absolute Monocytes (0.10 - 0.60 /CUMM) 1.0 H Absolute Eosinophils (0.0 - 0.7 /CUMM) 0.1 Absolute Basophils (0.0 - 0.2 /CUMM) 0.1 PUBS MCHC (33.0 - 37.0 G/DL) 33.2 Urines Urinalysis HEAVY H Urine Color (YEL,AMB,STR) STRAW Urine Clarity (CLEAR) CLDY H Urine pH (5.0 - 8.0) 8.0 Ur Specific [place] (1.001 - 1.035) 1.015 Urine Protein (NEG,<30 MG/DL) NEG Urine Ketones (NEG) TRACE H Urine Nitrite (NEG) NEG Urine Bilirubin (NEG) NEG Urine Urobilinogen (0.1 - 1.0 EU/dl) 0.2 Ur Leukocyte Esterase (NEG) NEG Ur Microscopic SEDIMENT EXAMINED Urine RBC (0 - 5 /HPF) 1-3 Urine WBC (0 - 2 /HPF) RARE Ur Epithelial Cells (NONE,FEW) RARE Urine Hemoglobin (NEG) TRACE-INTACT Urine Glucose (N MG/DL) NEG 02/02 1857 Chemistry Sodium (137 - 145 mmol/L) 142 Potassium (3.5 - 5.1 mmol/L) 3.8 Chloride (98 - 107 mmol/L) 99 Carbon Dioxide (22 - 30 mmol/L) 33 H Anion Gap (5 - 16) 10 BUN (7 - 17 mg/dL) 17 Creatinine (0.5 - 1.0 mg/dL) 0.6 Estimated GFR (>60 ml/min) > 60 BUN/Creatinine Ratio (7 - 25 %) 28.3 H Glucose (65 - 99 mg/dL) 111 H Calcium (8.4 - 10.2 mg/dL) 9.9 Total Bilirubin (0.2 - 1.3 mg/dL) 0.7 AST (14 - 36 U/L) 28 ALT (9 - 52 U/L) 44 Alkaline Phosphatase (<127 U/L) 92 Troponin I (< 0.11 ng/ml) 0.01 Total Protein (6.3 - 8.2 g/dL) 7.5 Albumin (3.5 - 5.0 g/dL) 4.6 Globulin (1.9 - 4.2 gm/dL) 2.9 Albumin/Globulin Ratio (1.1 - 2.2 %) 1.6 Coagulation PT (9.4 - 12.5 SEC) 11.9 INR (0.90 - 1.19) 1.13 Hematology CBC w Diff MAN DIFF ORDERED WBC (4.8 - 10.8 /CUMM) 21.2 H RBC (4.20 - 5.40 /CUMM) 4.64 Hgb (12.0 - 16.0 G/DL) 14.9 Hct (37 - 47 %) 44.5 MCV (81.0 - 99.0 FL) 95.9 MCH (27.0 - 31.0 PG) 32.1 H RDW (11.5 - 14.5 %) 13.6 Plt Count (130 - 400 /CUMM) 814 H MPV (7.4 - 10.4 FL) 6.2 L Gran % (42.2 - 75.2 %) 89.2 H Lymphocytes % (20.5 - 51.1 %) 5.5 L Monocytes % (1.7 - 9.3 %) 4.8 Eosinophils % (0 - 5 %) 0.3 Basophils % (0.0 - 2.0 %) 0.2 Absolute Granulocytes (1.4 - 6.5 /CUMM) 18.9 H Segmented Neutrophils (42.2 - 75.2 %) 84 H Absolute Lymphocytes (1.2 - 3.4 /CUMM) 1.2 Lymphocytes (20.5 - 51.1 %) 5 L Monocytes (1.7 - 9.3 %) 11 H Absolute Monocytes (0.10 - 0.60 /CUMM) 1.0 H Absolute Eosinophils (0.0 - 0.7 /CUMM) 0.1 Absolute Basophils (0.0 - 0.2 /CUMM) 0 Platelet Estimate (ADEQUATE) INCREASED Normal RBC Morphology N PUBS MCHC (33.0 - 37.0 G/DL) 33.5 Vital Signs Date Time Temp Pulse Resp B/P Pulse O2 O2 Flow FiO2 Ox Delivery Rate 02/03 0859 Nasal 2.0L Cannula 02/03 0619 99.5 69 18 160/72 97 Nasal 2.0L Cannula 02/03 0029 95 Nasal 2.0L Cannula 02/03 0000 Nasal 2.0L Cannula 02/02 2302 99.3 73 20 142/72 97 Nasal 2.0L Cannula 02/03 2040 98.7 81 14 187/74 98 Nasal 2.0L Cannula 02/03 2032 98.2 79 20 187/ 99 Nasal 2.0L Cannula 02/022 76 14 198/81 97 Room Air
[2017-02-03 14:23] VITALS: BP 160/60
--- NOTE | 2017-02-03 21:24 | RADIOLOGY REPORT ---
EXAMINATION: XR HIP, RIGHT CLINICAL INFORMATION: Status post right hip hemiarthroplasty. COMPARISON: Plain films of the right hip 02/02/2017. TECHNIQUE: Single AP view of the right hip. FINDINGS: Expected postoperative changes following right hip arthroplasty. No periprosthetic fractures are identified. There is no appreciable dislocation of the right hip. IMPRESSION: Expected postoperative changes following right hip arthroplasty. No immediate mechanical hardware complications. No periprosthetic fractures.
[2017-02-03 22:12] VITALS: BP 122/58
--- NOTE | 2017-02-03 23:21 | PN- Orthopedic ---
Subjective Subjective: POST OP CHECK Procedure: s/p right hip hemiarthroplasty Called by RN that patient refusing to take Coumadin tonight. Also states she refuses to speak. Interviewer witnessed capacity preoperatively in the holding area and patient was conversant with family. Called daughter, Guillermina, who states patient sometimes refuses to speak when she is frustrated, but asking for a medical evaluation as the patient has a hx of CVA (head CT performed yesterday ). Unable to obtain interim history post operatively. Objective Vital Signs and I&Os Vital Signs Date Time Temp Pulse Resp B/P Pulse O2 O2 Flow FiO2 Ox Delivery Rate 02/04 2212 98.0 65 16 122/58 94 Nasal 2.0L Cannula 02/03 1623 99.4 70 16 22/60 02/03 1600 97 Nasal 2.0L Cannula 02/03 1423 99.0 64 18 160/60 97 Nasal 2.0L Cannula 02/03 0859 Nasal 2.0L Cannula 02/03 0800 97 Nasal 2.0L Cannula 02/03 0619 99.5 69 18 160/72 97 Nasal 2.0L Cannula 02/03 0029 95 Nasal 2.0L Cannula 02/03 0000 Nasal 2.0L Cannula Intake & Output 02/03 1600 02/03 0800 02/03 0000 02/02 1600 02/02 0800 02/02 0000 Intake Total 972 114 5425 Output Total 400 350 800 Balance 250 250 200 Intake, IV 928 152 6165 Intake, Oral 0 0 0 Number 0 Bowel Movements Output, Urine 400 350 800 Patient 135 lb 120 lb Weight Physical Exam: Gen: not conversant. Unable to evaluate for orientation. Follows verbal commands. Cor: S1+S2+ Lungs: CTA joao Abd: soft, NT, ND, +BS x4 Ext: right hip dressing C/D/I. Palpable DP/PT pulse to right foot. Foot warm. Dorsiflexion and plantar flexion grossly intact. Results Recent Imaging Studies: IMPRESSION: Expected postoperative changes following right hip arthroplasty. No immediate mechanical hardware complications. No periprosthetic fractures. DICTATED BY: ODALYS DIAZ MD DATE/TIME DICTATED:02/03/172119 SENIOR ACCOUNTING SPECIALIST:HELEN DATE/TIME TRANSCRIBED:02/03/172119 CONFIDENTIAL, DO NOT COPY WITHOUT APPROPRIATE AUTHORIZATION. <Electronically signed in Other Vendor System> SIGNED BY: ODALYS DIAZ MD 02/03/17 2124 Assessment/Plan Assessment/Plan A: 86 year old female with PMH significant for CVA Jul 2016, ambulatory who is s/p right hip hemiarthroplasty after sustaining a mechanical fall. AVSS. Plan: Medicine evaluation for mental status assessment, although, with history of being selectively mute, would favor not performing head CT as patient had one last night. Coumadin 5 mg x1 tonight. Repeat INR in am. PT eval in am, weight bear as tolerated. Care per primary team.
[2017-02-04 05:13] LABS: ABSOLUTE BASOPHIL COUNT 0 /CUMM (0.0-0.2); ABSOLUTE EOSINOPHIL COUNT 0 /CUMM (0.0-0.7); ABSOLUTE GRANULOCYTE CT 13.7 /CUMM (1.4-6.5); ABSOLUTE LYMPH COUNT 0.5 /CUMM (1.2-3.4); ABSOLUTE MONOCYTE COUNT 0.6 /CUMM (0.10-0.60); BASOPHIL % 0 % (0.0-2.0); EOSINOPHIL % 0.1 % (0-5); GRANULOCYTE % 92.2 % (42.2-75.2); HEMATOCRIT 39.7 % (37-47); MEAN CORPUSCULAR HGB 32.3 PG (27.0-31.0); MEAN CORPUSCULAR HGB CONC 33.4 G/DL (33.0-37.0); MEAN CORPUSCULAR VOLUME 96.5 FL (81.0-99.0); MEAN PLATELET VOLUME 6.3 FL (7.4-10.4); PLATELET COUNT 692 /CUMM (130-400); RBC DISTRIBUTION WIDTH 13.5 % (11.5-14.5); RED BLOOD CELL CT 4.12 /CUMM (4.20-5.40); WHITE BLOOD CELL COUNT 14.8 /CUMM (4.8-10.8)
[2017-02-04 05:14] LABS: PT 14.9 SEC (9.4-12.5)
--- NOTE | 2017-02-04 07:06 | Event Note ---
Event Note Event Note: Situation Agitated, more confused after the surgery. Brief Patient had dementia at baseline, underwent hemiarthroplasty this evening. After the surgery she started was very mute. Surgical PA was contacted, I spoke to her - she reported that the patient is selectively mute occasionally, so it might be her usual form and informed that there is no need for CT scan. Later patient became very agitated, started to pull her line, ripped off her cortez catheter. At this point bilteral upper soft restraints are placed. A single dose of Zyprexa is given. Despite these she remianed agitated. A single dose of haldol 1mg is given later. (QTc <475) Assessment and plan * Acute worsening of baseline dementia post operatively - causing " Delirium " * Most probably anesthesia related, othre reasons could be new surrounding/Pain/ cortez catheter * I tried to replace with another cortez as retention could be one of the reasons , but apparently Nurse Elizabeth spoke with her daughter who really dont want that intervention * She was given one additional dose of morphine 2mg as she is not taking oxycodone oral * she was able to take warfarin in the night * CBC, BEP and PT are done early to rule out electrolyte abnormalities causing alteration
[2017-02-04 07:41] VITALS: BP 190/88
--- NOTE | 2017-02-04 07:50 | PN- Orthopedic ---
See Addendum Subjective Subjective: POD #1 s/p right hip hemiarthroplasty for an impacted IT fracture. Confused overnight requiring restraints. Unable to appropriately respond to commands this morning. Daughter to bedside early this morning stating this is her baseline at times. Denies N/V, F/C, CP/SOB. Objective Vital Signs and I&Os Vital Signs Date Time Temp Pulse Resp B/P Pulse O2 O2 Flow FiO2 Ox Delivery Rate 02/04 0000 94 Nasal 2.0L Cannula 02/04 2212 98.0 65 16 122/58 94 Nasal 2.0L Cannula 02/03 1623 99.4 70 16 22/60 02/03 1600 97 Nasal 2.0L Cannula 02/03 1423 99.0 64 18 160/60 97 Nasal 2.0L Cannula 02/03 0859 Nasal 2.0L Cannula 02/03 0800 97 Nasal 2.0L Cannula Intake & Output 02/04 0800 02/04 0000 02/03 1600 02/03 0800 02/03 0000 02/02 1600 Intake Total 600 163 817 0864 Output Total 100 300 400 350 800 Balance 500 -300 250 250 200 Intake, IV 600 610 107 4795 Intake, Oral 0 0 0 Number 0 Bowel Movements Output, Urine 100 300 400 350 800 Patient 135 lb 120 lb Weight Physical Exam: Gen: AAOx3 in NAD Cor: S1+S2+ Lungs: CTA joao Abd: soft, NT, ND, +Bs x4 Ext: right hip dressing C/D/I. No soft tissue mass to suggest hematoma. Palpable DP pulses joao. Feet warm. Thigh compartment soft. Current Medications: Current Medications Sig/Wisam Start time Last Medication Dose Route Stop Time Status Admin Acetaminophen 650 MG Q6P PRN 02/03 2215 AC PO Acetaminophen 1,000 MG .STK-MED ONE 02/03 1751 DC IV 02/03 175 Acetaminophen 650 MG Q6P PRN 02/02 2145 DC PO Amlodipine Besylate 5 MG DAILY 02/04 1000 AC PO Amlodipine Besylate 5 MG DAILY 02/03 1403 DC 02/03 PO 1623 Atenolol 50 MG DAILY 02/04 1000 AC PO Atenolol 50 MG DAILY 02/03 1000 DC 02/03 PO 0944 Dexamethasone 4 MG .STK-MED ONE 02/03 1751 DC IM 02/03 1752 Dextrose/Sodium 1,000 ML Q13H 02/04 0200 AC 02/04 Chloride IV 0009 Dextrose/Sodium 1,000 ML Q13H 02/03 0000 DC 02/03 Chloride IV 02/04 0159 1347 Diphenhydramine HCl 25 MG Q6P PRN 02/03 2215 AC 02/04 IV 0109 Diphenhydramine HCl 25 MG Q6P PRN 02/02 2145 DC IV Fentanyl Citrate 250 MCG .STK-MED ONE 02/03 1751 DC IM 02/03 1752 Furosemide 40 MG DAILY 02/04 1000 AC PO Furosemide 40 MG DAILY 02/03 1405 DC 02/03 PO 1623 Haloperidol 1 MG ONCE ONE 02/04 0430 DC 02/04 IM 02/04 0431 0421 Heparin Sodium 5,000 UNIT Q8 02/04 0600 AC 02/04 (Porcine) SC 0611 Heparin Sodium 5,000 UNIT Q8 02/02 2200 DC 02/03 (Porcine) SC 0009 Hydromorphone HCl 2 MG .STK-MED ONE 02/03 1750 DC IM 02/03 1751 Levothyroxine Sodium 0.112 MG DAILY AC 02/04 0700 AC PO Levothyroxine Sodium 0.112 MG DAILY AC 02/03 1403 DC 02/03 PO 1622 Morphine Sulfate 2 MG ONCE ONE 02/04 0500 DC 02/04 IV 02/04 0501 0450 Morphine Sulfate 2 MG Q4P PRN 02/03 2215 AC 02/03 IV 2346 Morphine Sulfate 2 MG Q4P PRN 02/02 2145 DC 02/03 IV 1347 Olanzapine 2.5 MG ONCE ONE 02/04 0215 DC 02/04 IM 02/04 0216 0311 Ondansetron HCl 4 MG .STK-MED ONE 02/03 1751 DC IM 02/03 1752 Oxycodone HCl 5 MG Q6P PRN 02/03 2215 AC PO Oxycodone HCl 5 MG Q6P PRN 02/02 2359 DC 02/03 PO 1639 Patient Medication 1 ED .STK-MED ONE 02/03 1306 DC Teaching ED 02/03 1307 Polyethylene Glycol 17 GM DAILY 02/04 1000 AC PO Polyethylene Glycol 17 GM AT BEDTIME NEED.. 02/02 2145 DC PO Prochlorperazine 10 MG Q6P PRN 02/03 2215 AC IV Prochlorperazine 10 MG Q6P PRN 02/025 DC IV Senna/Docusate Sodium 2 TAB AT BEDTIME 02/04 2200 AC PO Senna/Docusate Sodium 2 TAB AT BEDTIME 02/02 2200 DC 02/03 PO 0009 Warfarin Sodium 5 MG COUMADIN 1700 ONE 02/03 2100 DC 02/04 PO 02/03 2101 0008 Results Last 48 Hours of Labs: Laboratory Tests 02/04 02/03 0455 0624 Chemistry Sodium (137 - 145 mmol/L) 140 142 Potassium (3.5 - 5.1 mmol/L) 3.4 L 3.6 Chloride (98 - 107 mmol/L) 101 103 Carbon Dioxide (22 - 30 mmol/L) 30 35 H Anion Gap (5 - 16) 8 4 L BUN (7 - 17 mg/dL) 8 11 Creatinine (0.5 - 1.0 mg/dL) 0.6 0.6 Estimated GFR (>60 ml/min) > 60 > 60 BUN/Creatinine Ratio (7 - 25 %) 13.3 18.3 Coagulation PT (9.4 - 12.5 SEC) 14.9 H INR (0.90 - 1.19) 1.42 H Hematology CBC w Diff NO MAN DIFF REQ NO MAN DIFF REQ WBC (4.8 - 10.8 /CUMM) 14.8 H 15.0 H RBC (4.20 - 5.40 /CUMM) 4.12 L 4.14 L Hgb (12.0 - 16.0 G/DL) 13.3 13.3 Hct (37 - 47 %) 39.7 40.0 MCV (81.0 - 99.0 FL) 96.5 96.7 MCH (27.0 - 31.0 PG) 32.3 H 32.1 H RDW (11.5 - 14.5 %) 13.5 13.6 Plt Count (130 - 400 /CUMM) 692 H 696 H MPV (7.4 - 10.4 FL) 6.3 L 6.2 L Gran % (42.2 - 75.2 %) 92.2 H 85.0 H Lymphocytes % (20.5 - 51.1 %) 3.6 L 7.0 L Monocytes % (1.7 - 9.3 %) 4.1 6.8 Eosinophils % (0 - 5 %) 0.1 0.8 Basophils % (0.0 - 2.0 %) 0 L 0.4 Absolute Granulocytes (1.4 - 6.5 /CUMM) 13.7 H 12.7 H Absolute Lymphocytes (1.2 - 3.4 /CUMM) 0.5 L 1.1 L Absolute Monocytes (0.10 - 0.60 /CUMM) 0.6 1.0 H Absolute Eosinophils (0.0 - 0.7 /CUMM) 0 0.1 Absolute Basophils (0.0 - 0.2 /CUMM) 0 0.1 PUBS MCHC (33.0 - 37.0 G/DL) 33.4 33.2 02/02 02/02 2105 1857 Chemistry Sodium (137 - 145 mmol/L) 142 Potassium (3.5 - 5.1 mmol/L) 3.8 Chloride (98 - 107 mmol/L) 99 Carbon Dioxide (22 - 30 mmol/L) 33 H Anion Gap (5 - 16) 10 BUN (7 - 17 mg/dL) 17 Creatinine (0.5 - 1.0 mg/dL) 0.6 Estimated GFR (>60 ml/min) > 60 BUN/Creatinine Ratio (7 - 25 %) 28.3 H Glucose (65 - 99 mg/dL) 111 H Calcium (8.4 - 10.2 mg/dL) 9.9 Total Bilirubin (0.2 - 1.3 mg/dL) 0.7 AST (14 - 36 U/L) 28 ALT (9 - 52 U/L) 44 Alkaline Phosphatase (<127 U/L) 92 Troponin I (< 0.11 ng/ml) 0.01 Total Protein (6.3 - 8.2 g/dL) 7.5 Albumin (3.5 - 5.0 g/dL) 4.6 Globulin (1.9 - 4.2 gm/dL) 2.9 Albumin/Globulin Ratio (1.1 - 2.2 %) 1.6 Coagulation PT (9.4 - 12.5 SEC) 11.9 INR (0.90 - 1.19) 1.13 Hematology CBC w Diff MAN DIFF ORDERED WBC (4.8 - 10.8 /CUMM) 21.2 H RBC (4.20 - 5.40 /CUMM) 4.64 Hgb (12.0 - 16.0 G/DL) 14.9 Hct (37 - 47 %) 44.5 MCV (81.0 - 99.0 FL) 95.9 MCH (27.0 - 31.0 PG) 32.1 H RDW (11.5 - 14.5 %) 13.6 Plt Count (130 - 400 /CUMM) 814 H MPV (7.4 - 10.4 FL) 6.2 L Gran % (42.2 - 75.2 %) 89.2 H Lymphocytes % (20.5 - 51.1 %) 5.5 L Monocytes % (1.7 - 9.3 %) 4.8 Eosinophils % (0 - 5 %) 0.3 Basophils % (0.0 - 2.0 %) 0.2 Absolute Granulocytes (1.4 - 6.5 /CUMM) 18.9 H Segmented Neutrophils (42.2 - 75.2 %) 84 H Absolute Lymphocytes (1.2 - 3.4 /CUMM) 1.2 Lymphocytes (20.5 - 51.1 %) 5 L Monocytes (1.7 - 9.3 %) 11 H Absolute Monocytes (0.10 - 0.60 /CUMM) 1.0 H Absolute Eosinophils (0.0 - 0.7 /CUMM) 0.1 Absolute Basophils (0.0 - 0.2 /CUMM) 0 Platelet Estimate (ADEQUATE) INCREASED Normal RBC Morphology N PUBS MCHC (33.0 - 37.0 G/DL) 33.5 Urines Urinalysis HEAVY H Urine Color (YEL,AMB,STR) STRAW Urine Clarity (CLEAR) CLDY H Urine pH (5.0 - 8.0) 8.0 Ur Specific [place] (1.001 - 1.035) 1.015 Urine Protein (NEG,<30 MG/DL) NEG Urine Ketones (NEG) TRACE H Urine Nitrite (NEG) NEG Urine Bilirubin (NEG) NEG Urine Urobilinogen (0.1 - 1.0 EU/dl) 0.2 Ur Leukocyte Esterase (NEG) NEG Ur Microscopic SEDIMENT EXAMINED Urine RBC (0 - 5 /HPF) 1-3 Urine WBC (0 - 2 /HPF) RARE Ur Epithelial Cells (NONE,FEW) RARE Urine Hemoglobin (NEG) TRACE-INTACT Urine Glucose (N MG/DL) NEG Assessment/Plan Assessment/Plan A: POD #1 s/p right hip hemiarthroplasty; AVSS. Plan: Daily Coumadin per INR. PT eval today- will likely need STR upon discharge. Encouraged ist. Regular diet. Stop IVF.
--- NOTE | 2017-02-04 09:05 | PN- Housestaff ---
Subjective Follow-up For: Right femoral neck fracture Subjective: Patient seen and examined. She is seen sitting in her chair at bedside maintained in bilateral soft upper extremity restraints. She appears confused, but in no acute distress. When asked if she has any pain or complaints she stares blankly and replies with "where is it?". She is fidgiting in the chair and attempting unsafe ambulation. Review of systems is unobtainable. Overnight patient was reportedly pulling at IV for which the restraints were ordered. Review of Systems Constitutional: Reports: see HPI. Objective Last 24 Hrs of Vital Signs/I&O Vital Signs Date Time Temp Pulse Resp B/P Pulse O2 O2 Flow FiO2 Ox Delivery Rate 02/04 1509 98.1 78 93 130/62 16 Room Air 02/04 0829 113 190/88 02/04 0800 Nasal 2.0L Cannula 02/04 0741 97.3 113 20 190/88 96 Nasal Cannula 02/04 0000 94 Nasal 2.0L Cannula 02/03 2212 98.0 65 16 122/58 94 Nasal 2.0L Cannula Intake & Output 02/04 1600 02/04 0800 02/04 0000 Intake Total 2040 600 Output Total 100 300 Balance 2040 500 -300 Intake, IV 600 600 Intake, Oral 1440 Number 0 Bowel Movements Output, Urine 100 300 Patient 48.534 kg Weight Physical Exam General Appearance: Alert, No Acute Distress Other Physical Findings: General - well developed, well nourished elderly woman appearing agitated and confused HEENT - NCAT, EOMI, PERRL, anicteric sclera CVS - S1, S2 w/o m/g/r Resp - CTA bilaterally GI - Soft, nontender, nondistended, bowel sounds intact Neuro - AAOx0, agitated/confused, CN II - XII grossly intact Ext - normal pulses, no cyanosis/clubbing/edema, bilateral soft upper extremity restraints in place Current Medications: Current Medications Sig/Wisam Start time Last Medication Dose Route Stop Time Status Admin Acetaminophen 650 MG Q6P PRN 02/03 2215 AC PO Acetaminophen 1,000 MG .STK-MED ONE 02/03 1751 DC IV 02/03 1752 Acetaminophen 650 MG Q6P PRN 02/02 2145 DC PO Amlodipine Besylate 5 MG DAILY 02/04 1000 AC 02/04 PO 0829 Amlodipine Besylate 5 MG DAILY 02/03 1403 DC 02/03 PO 1623 Atenolol 50 MG DAILY 02/04 1000 AC 02/04 PO 0830 Atenolol 50 MG DAILY 02/03 1000 DC 02/03 PO 0944 Dexamethasone 4 MG .STK-MED ONE 02/03 1751 DC IM 02/03 1752 Dextrose/Sodium 1,000 ML Q13H 02/04 0200 AC 02/04 Chloride IV 1432 Dextrose/Sodium 1,000 ML Q13H 02/03 0000 DC 02/03 Chloride IV 02/04 0159 1347 Diphenhydramine HCl 50 MG .STK-MED ONE 02/04 0105 DC IM 02/04 0106 Diphenhydramine HCl 25 MG Q6P PRN 02/03 2215 AC 02/04 IV 0109 Diphenhydramine HCl 25 MG Q6P PRN 02/02 214 DC IV Fentanyl Citrate 250 MCG .STK-MED ONE 02/03 1751 DC IM 02/03 1752 Furosemide 40 MG DAILY 02/04 1000 AC 02/04 PO 0830 Furosemide 40 MG DAILY 02/03 1405 DC 02/03 PO 1623 Haloperidol 1 MG ONCE ONE 02/04 0430 DC 02/04 IM 02/04 0431 0421 Heparin Sodium 5,000 UNIT Q8 02/04 0600 AC 02/04 (Porcine) SC 1431 Heparin Sodium 5,000 UNIT Q8 02/02 2200 DC 02/03 (Porcine) SC 0009 Hydromorphone HCl 2 MG .STK-MED ONE 02/03 1750 DC IM 02/03 1751 Levothyroxine Sodium 0.112 MG DAILY AC 02/04 0700 AC PO Levothyroxine Sodium 0.112 MG DAILY AC 02/03 1403 DC 02/03 PO 1622 Morphine Sulfate 2 MG ONCE ONE 02/04 0500 DC 02/04 IV 02/04 0501 0450 Morphine Sulfate 2 MG Q4P PRN 02/03 2215 AC 02/04 IV 1431 Morphine Sulfate 2 MG Q4P PRN 02/02 2145 DC 02/03 IV 1347 Olanzapine 2.5 MG ONCE ONE 02/04 0215 DC 02/04 IM 02/04 0216 0311 Ondansetron HCl 4 MG .STK-MED ONE 02/03 1751 DC IM 02/03 1752 Oxycodone HCl 5 MG Q6P PRN 02/03 2215 AC 02/04 PO 1226 Oxycodone HCl 5 MG Q6P PRN 02/02 2359 DC 02/03 PO 1639 Polyethylene Glycol 17 GM DAILY 02/04 1000 AC 02/04 PO 0830 Polyethylene Glycol 17 GM AT BEDTIME NEED.. 02/02 2145 DC PO Prochlorperazine 10 MG Q6P PRN 02/03 221 AC IV Prochlorperazine 10 MG Q6P PRN 02/02 2145 DC IV Senna/Docusate Sodium 2 TAB AT BEDTIME 02/04 220 AC PO Senna/Docusate Sodium 2 TAB AT BEDTIME 02/02 2200 DC 02/03 PO 0009 Warfarin Sodium 5 MG COUMADIN 1700 ONE 02/04 1700 DC PO 02/04 1701 Warfarin Sodium 5 MG COUMADIN 1700 ONE 02/03 2100 DC 02/04 PO 02/03 2101 0008 Last 24 Hrs of Lab/Dieudonne Results Last 24 Hrs of Labs/Mics: Laboratory Tests 02/04/17 0455: Anion Gap 8, Estimated GFR > 60, BUN/Creatinine Ratio 13.3, PT 14.9 H, INR 1.42 H, CBC w Diff NO MAN DIFF REQ, RBC 4.12 L, MCV 96.5, MCH 32.3 H, RDW 13.5, MPV 6.3 L, Gran % 92.2 H, Lymphocytes % 3.6 L, Monocytes % 4.1, Eosinophils % 0.1, Basophils % 0 L, Absolute Granulocytes 13.7 H, Absolute Lymphocytes 0.5 L, Absolute Monocytes 0.6, Absolute Eosinophils 0, Absolute Basophils 0, PUBS MCHC 33.4 Assessment/Plan Assessment: Patient remains altered and confused after the surgical fixation of her right femoral neck fractures. Restraints were discontinued this afternoon as patient appeared more calm. Present in the room this afternoon at the patients two daughters whom have questions about their mothers clinical condition. Delerium triggers are to be avoid, including benzodiazepines, anticholinergic medications and excessive noctural disturbances. Coumadin was dosed today for a subtherapeutic INR. Post Operative Delerium / History of CVA with rided sided deficit Patient is not oriented to person/place/time and is confused after surgery. This is most likely secondary to the anesthesia utilized during the procedure. Patient dose not exhibit any obvious neurologic deficits. Patient received Haldol and Zyprexa for worsening noctural agitation with minimal benefit. -Avoid excessive sedation and delerium triggers -Avoid benodiazpenes / anticholingergic side effects -Restraints as necessary for pulling at IVs or attempts at unsafe ambulation -Minimize night times awakenings -Rozerm 8mg PO QHS for sleep Right Displaced Subcapital proximal Femoral Fracture S/P Hemiarthroplasty Patient sustained an unwitness mechnical fall for which she sustained a right hip fracture. -General Medicine -S/P Right hemiarthroplasty, POD #1 -Pain Control -D5 1/2 while not eating -Ortho consult -PT evaluation -Daily INR, dose coumadin accordingly Hypertension -Amlodipine 5mg PO Daily -Atenolol 50mg PO Daily -Lasix 40mg PO Daily Hypothyroidism-Levothyroxine 112mcg PO Daily Pain Plan-Acetaminophen/Oxycodone/Morphine; use sparingly Bowel Regimen- Senokot S / Miralax Diet-Clear Liquid Diet, advance as tolerated DVT PPx- subcutaneous heparin Code Status - DNR/DNI Problem List: 1. Fall 2. Hip fracture 3. Acute delirium Pain Ratin Pain Location: Right hip Pain Goal: Pain 7 or less Pain Plan: See assessment Tomorrow's Labs & Rationales: CBC-Leukocytosis BEP-Hypokalemia Consulting Request: Consulting Specialty: Orthopedics
--- NOTE | 2017-02-04 09:34 | Operative Report ---
Operative/Inv Procedure Report Surgery Date: 02/03/17 Name of Procedure: Right hip hemiarthroplasty Pre-Operative Diagnosis: Displaced right femoral neck hip fracture/subcapital Post-Operative Diagnosis: Same Estimated Blood Loss: 50ml to 100ml Surgeon/Follow Up Clerk: Jaden Manzo MD, Sun PUCKETT Anesthesia: general endotracheal tube Implants: [place] accolade hip fracture stem size 3 Standard neck adapter, 43 mm femoral head unipolar Drains: None Specimens: Femoral head, portion of femoral neck Complications: None Condition: Stable Operative Indication: Patient is an 86-year-old woman with a history of dementia fell injuring her right hip. She was found to have a displaced femoral neck/subcapital femur fracture. It was recommended that she consider hemiarthroplasty. Patient power of tax associate attorney consented to the procedure after risks benefits and expectations were discussed which included but were not limited to hip pain, infection, DVT, anesthesia risks, need for subsequent surgery, leg length discrepancy, dislocation Operative/Procedure Note Note: Patient was brought to the operating room and transferred to the operating table. Once under appropriate anesthesia patient was placed into a left lateral decubitus position with right side up. All bony prominences were well-padded. The right lower extremity was prepped and draped in standard fashion and preoperative IV antibiotics given prophylactically. A standard lateral incision was made for anticipated superior approach to the hip. Incision was taken down sharply to the underlying fascia. Fascia was incised in line with the skin incision. The hip was internally rotated the external rotators were put on tension. The piriformis was identified and dissected off of the posterior aspect of the femur at the piriformis fossa area the interval between the gluteus medius minimus tendon and the superior capsule was identified and a retractor was placed in this position. The more inferior retractor was placed to identify the inferior capsule. A T-incision was then made in the capsule and the 2 flaps were reflected posteriorly for later anatomic repair. There was a fairly large fracture hematoma/hemarthrosis. There was comminution at the fracture site. There was a high femoral neck/subcapital hip fracture which was unstable. Fragments of comminuted bone were removed. I needed to make a femoral neck cut in order to remove the femoral head from the acetabular fossa. This was done in standard fashion using the broasim as a guide. This portion of bone was removed. I then was able to remove the femoral head from the acetabular fossa using a corkscrew. Femoral head was measured to size 43. There was no evidence of significant osteoarthritis of the acetabulum. The 7 fossa was evacuated of any hematoma and there was no bony fragments in the fossa. I then turned my attention to preparing the proximal femur. A femoral elevator was placed underneath the proximal femur and posterior retractor was placed I then broached after using the canal finder. I broached up to a size 3 for the Accolade fracture stem/Scott. I left last broach in place and did a closed reduction of the hip to test the stability. I was satisfied with the stability in all planes. I used a -4 neck to start to reduce any tension while placing the femoral head back into the acetabular fossa. However later on I was able to restore leg length and maintain stability with a standard neck adapter. Once I was satisfied with the stability and sizing of the femur, I removed all instruments from the hip copious irrigation femoral canal followed I confirmed integrity of the femoral kent. I then impacted the definitive size 3 Accolade fracture stem with the appropriate anteversion and reproducing position of the previously placed and removed broach. I did a trial reduction with a standard neck and 43 mm femoral head. I was satisfied with the stability. No evidence of impingement or instability to simultaneous internal rotation adduction and flexion to greater than 90. No evidence of anterior instability with simultaneous extension and external rotation. I removed the trial femoral neck and femoral head, dried the trunnion of the prosthesis and then place a definitive standard neck adapter followed by the 43 mm unipolar femoral head in place. The locking mechanism was confirmed. The hip was reduced as atraumatically as possible and again I was satisfied with the stability with the definitive construct. Copious irrigation followed and then copious irrigation followed every level of closure. The capsule T-incision was closed in anatomic fashion. The piriformis was repaired. Fascia was closed with interrupted #1 Vicryl suture. Subcutaneous tissues closed with 2-0 Vicryl in 2 layers and skin was closed with mundo. Appropriate dressings were applied patient was awakened and taken to recovery room in good condition. Discharge Disposition: PACU
--- NOTE | 2017-02-04 13:21 | PN- Att Addend ---
Attending Addendum Attending Brief Note POD #1 s/p right hip hemiarthroplasty for an impacted IT fracture. Confused overnight requiring restraints. Unable to appropriately respond to commands this morning. Had mild worsening mental status last night. Denies N/V, F/C, CP /SOB. Objective Date Time Temp Pulse Resp B/P Pulse O2 O2 Flow FiO2 Ox Delivery Rate 02/04 0000 94 Nasal 2.0L Cannula 02/04 2212 98.0 65 16 122/58 94 Nasal 2.0L Cannula 02/03 1623 99.4 70 16 22/60 02/03 1600 97 Nasal 2.0L Cannula 02/03 1423 99.0 64 18 160/60 97 Nasal 2.0L Cannula 02/03 0859 Nasal 2.0L Cannula 02/03 08 97 Nasal 2.0L Cannula Intake & Output 02/04 0800 02/04 0000 02/03 1600 02/03 0800 02/03 0000 02/02 1600 Intake Total 600 655 930 8508 Output Total 100 300 400 350 800 Balance 500 -300 250 250 200 Intake, IV 600 496 971 8351 Intake, Oral 0 0 0 Number 0 Bowel Movements Output, Urine 100 300 400 350 800 Patient 135 lb 120 lb Weight Physical Exam: Gen: AAOx3 in NAD Cor: S1+S2+ Lungs: CTA joao Abd: soft, NT, ND, +Bs x4 Ext: right hip dressing C/D/I. No soft tissue mass to suggest hematoma. Palpable DP pulses joao. Feet warm. Thigh compartment soft. Mild confusion Current Medications: Current Medications Sig/Wisam Start time Last Medication Dose Route Stop Time Status Admin Acetaminophen 650 MG Q6P PRN 02/03 2215 AC PO Acetaminophen 1,000 MG .STK-MED ONE 02/03 1751 DC IV 02/03 1752 Acetaminophen 650 MG Q6P PRN 02/02 2145 DC PO Amlodipine Besylate 5 MG DAILY 02/04 1000 AC PO Amlodipine Besylate 5 MG DAILY 02/03 1403 DC 02/03 PO 1623 Atenolol 50 MG DAILY 02/04 1000 AC PO Atenolol 50 MG DAILY 02/03 1000 DC 02/03 PO 0944 Dexamethasone 4 MG .STK-MED ONE 02/03 1751 DC IM 02/03 1752 Dextrose/Sodium 1,000 ML Q13H 02/04 0200 AC 02/04 Chloride IV 0009 Dextrose/Sodium 1,000 ML Q13H 02/03 0000 DC 02/03 Chloride IV 02/04 0159 1347 Diphenhydramine HCl 25 MG Q6P PRN 02/03 2215 AC 02/04 IV 0109 Diphenhydramine HCl 25 MG Q6P PRN 02/02 214 DC IV Fentanyl Citrate 250 MCG .STK-MED ONE 02/03 1751 DC IM 02/03 1752 Furosemide 40 MG DAILY 02/04 1000 AC PO Furosemide 40 MG DAILY 02/03 1405 DC 02/03 PO 1623 Haloperidol 1 MG ONCE ONE 02/04 0430 DC 02/04 IM 02/04 0431 0421 Heparin Sodium 5,000 UNIT Q8 02/04 0600 AC 02/04 (Porcine) SC 0611 Heparin Sodium 5,000 UNIT Q8 02/02 2200 DC 02/03 (Porcine) SC 0009 Hydromorphone HCl 2 MG .STK-MED ONE 02/03 1750 DC IM 02/03 1751 Levothyroxine Sodium 0.112 MG DAILY AC 02/04 0700 AC PO Levothyroxine Sodium 0.112 MG DAILY AC 02/03 1403 DC 02/03 PO 1622 Morphine Sulfate 2 MG ONCE ONE 02/04 0500 DC 02/04 IV 02/04 0501 0450 Morphine Sulfate 2 MG Q4P PRN 02/03 2215 AC 02/03 IV 2346 Morphine Sulfate 2 MG Q4P PRN 02/02 2145 DC 02/03 IV 1347 Olanzapine 2.5 MG ONCE ONE 02/04 0215 DC 02/04 IM 02/04 0216 0311 Ondansetron HCl 4 MG .STK-MED ONE 02/03 1751 DC IM 02/03 1752 Oxycodone HCl 5 MG Q6P PRN 02/03 221 AC PO Oxycodone HCl 5 MG Q6P PRN 02/02 2359 DC 02/03 PO 1639 Patient Medication 1 ED .STK-MED ONE 02/03 1306 DC Teaching ED 02/03 1307 Polyethylene Glycol 17 GM DAILY 02/04 1000 AC PO Polyethylene Glycol 17 GM AT BEDTIME NEED.. 02/02 214 DC PO Prochlorperazine 10 MG Q6P PRN 02/03 2215 AC IV Prochlorperazine 10 MG Q6P PRN 02/02 214 DC IV Senna/Docusate Sodium 2 TAB AT BEDTIME 02/040 AC PO Senna/Docusate Sodium 2 TAB AT BEDTIME 02/02 2200 DC 02/03 PO 0009 Warfarin Sodium 5 MG COUMADIN 1700 ONE 02/03 2100 DC 02/04 PO 02/03 2101 0008 Results Last 48 Hours of Labs: Laboratory Tests 02/04 02/03 0455 0624 Chemistry Sodium (137 - 145 mmol/L) 140 142 Potassium (3.5 - 5.1 mmol/L) 3.4 L 3.6 Chloride (98 - 107 mmol/L) 101 103 Carbon Dioxide (22 - 30 mmol/L) 30 35 H Anion Gap (5 - 16) 8 4 L BUN (7 - 17 mg/dL) 8 11 Creatinine (0.5 - 1.0 mg/dL) 0.6 0.6 Estimated GFR (>60 ml/min) > 60 > 60 BUN/Creatinine Ratio (7 - 25 %) 13.3 18.3 Coagulation PT (9.4 - 12.5 SEC) 14.9 H INR (0.90 - 1.19) 1.42 H Hematology CBC w Diff NO MAN DIFF REQ NO MAN DIFF REQ WBC (4.8 - 10.8 /CUMM) 14.8 H 15.0 H RBC (4.20 - 5.40 /CUMM) 4.12 L 4.14 L Hgb (12.0 - 16.0 G/DL) 13.3 13.3 Hct (37 - 47 %) 39.7 40.0 MCV (81.0 - 99.0 FL) 96.5 96.7 MCH (27.0 - 31.0 PG) 32.3 H 32.1 H RDW (11.5 - 14.5 %) 13.5 13.6 Plt Count (130 - 400 /CUMM) 692 H 696 H MPV (7.4 - 10.4 FL) 6.3 L 6.2 L Gran % (42.2 - 75.2 %) 92.2 H 85.0 H Lymphocytes % (20.5 - 51.1 %) 3.6 L 7.0 L Monocytes % (1.7 - 9.3 %) 4.1 6.8 Eosinophils % (0 - 5 %) 0.1 0.8 Basophils % (0.0 - 2.0 %) 0 L 0.4 Absolute Granulocytes (1.4 - 6.5 /CUMM) 13.7 H 12.7 H Absolute Lymphocytes (1.2 - 3.4 /CUMM) 0.5 L 1.1 L Absolute Monocytes (0.10 - 0.60 /CUMM) 0.6 1.0 H Absolute Eosinophils (0.0 - 0.7 /CUMM) 0 0.1 Absolute Basophils (0.0 - 0.2 /CUMM) 0 0.1 PUBS MCHC (33.0 - 37.0 G/DL) 33.4 33.2 02/02 1857 Chemistry Sodium (137 - 145 mmol/L) 142 Potassium (3.5 - 5.1 mmol/L) 3.8 Chloride (98 - 107 mmol/L) 99 Carbon Dioxide (22 - 30 mmol/L) 33 H Anion Gap (5 - 16) 10 BUN (7 - 17 mg/dL) 17 Creatinine (0.5 - 1.0 mg/dL) 0.6 Estimated GFR (>60 ml/min) > 60 BUN/Creatinine Ratio (7 - 25 %) 28.3 H Glucose (65 - 99 mg/dL) 111 H Calcium (8.4 - 10.2 mg/dL) 9.9 Total Bilirubin (0.2 - 1.3 mg/dL) 0.7 AST (14 - 36 U/L) 28 ALT (9 - 52 U/L) 44 Alkaline Phosphatase (<127 U/L) 92 Troponin I (< 0.11 ng/ml) 0.01 Total Protein (6.3 - 8.2 g/dL) 7.5 Albumin (3.5 - 5.0 g/dL) 4.6 Globulin (1.9 - 4.2 gm/dL) 2.9 Albumin/Globulin Ratio (1.1 - 2.2 %) 1.6 Coagulation PT (9.4 - 12.5 SEC) 11.9 INR (0.90 - 1.19) 1.13 Hematology CBC w Diff MAN DIFF ORDERED WBC (4.8 - 10.8 /CUMM) 21.2 H RBC (4.20 - 5.40 /CUMM) 4.64 Hgb (12.0 - 16.0 G/DL) 14.9 Hct (37 - 47 %) 44.5 MCV (81.0 - 99.0 FL) 95.9 MCH (27.0 - 31.0 PG) 32.1 H RDW (11.5 - 14.5 %) 13.6 Plt Count (130 - 400 /CUMM) 814 H MPV (7.4 - 10.4 FL) 6.2 L Gran % (42.2 - 75.2 %) 89.2 H Lymphocytes % (20.5 - 51.1 %) 5.5 L Monocytes % (1.7 - 9.3 %) 4.8 Eosinophils % (0 - 5 %) 0.3 Basophils % (0.0 - 2.0 %) 0.2 Absolute Granulocytes (1.4 - 6.5 /CUMM) 18.9 H Segmented Neutrophils (42.2 - 75.2 %) 84 H Absolute Lymphocytes (1.2 - 3.4 /CUMM) 1.2 Lymphocytes (20.5 - 51.1 %) 5 L Monocytes (1.7 - 9.3 %) 11 H Absolute Monocytes (0.10 - 0.60 /CUMM) 1.0 H Absolute Eosinophils (0.0 - 0.7 /CUMM) 0.1 Absolute Basophils (0.0 - 0.2 /CUMM) 0 Platelet Estimate (ADEQUATE) INCREASED Normal RBC Morphology N PUBS MCHC (33.0 - 37.0 G/DL) 33.5 Urines Urinalysis HEAVY H Urine Color (YEL,AMB,STR) STRAW Urine Clarity (CLEAR) CLDY H Urine pH (5.0 - 8.0) 8.0 Ur Specific [place] (1.001 - 1.035) 1.015 Urine Protein (NEG,<30 MG/DL) NEG Urine Ketones (NEG) TRACE H Urine Nitrite (NEG) NEG Urine Bilirubin (NEG) NEG Urine Urobilinogen (0.1 - 1.0 EU/dl) 0.2 Ur Leukocyte Esterase (NEG) NEG Ur Microscopic SEDIMENT EXAMINED Urine RBC (0 - 5 /HPF) 1-3 Urine WBC (0 - 2 /HPF) RARE Ur Epithelial Cells (NONE,FEW) RARE Urine Hemoglobin (NEG) TRACE-INTACT Urine Glucose (N MG/DL) NEG IMPRESSION 86-year-old with history of right-sided CVA, dementia, hypertension having weakness 2 weeks prior to this presentation and possible UTI presenting status post fall likely mechanical. S/p surg with post op delirum with underlying dementia Leukocytosis and thrombocytosis S/p surg Hypothyroid on meds Plan Follow urine culture Follow off antibiotics Minimal pain meds Continue other home meds Warfain Cont levoxyl Once she is eating then can dc ivf
[2017-02-04 15:09] VITALS: BP 130/62
[2017-02-04 21:51] VITALS: BP 162/70
[2017-02-05 06:58] LABS: ABSOLUTE BASOPHIL COUNT 0.1 /CUMM (0.0-0.2); ABSOLUTE EOSINOPHIL COUNT 0.1 /CUMM (0.0-0.7); ABSOLUTE GRANULOCYTE CT 12.9 /CUMM (1.4-6.5); BASOPHIL % 0.5 % (0.0-2.0); EOSINOPHIL % 0.7 % (0-5); GRANULOCYTE % 85.1 % (42.2-75.2); HEMATOCRIT 37.7 % (37-47); MEAN CORPUSCULAR HGB 32.4 PG (27.0-31.0); MEAN CORPUSCULAR HGB CONC 33.8 G/DL (33.0-37.0); MEAN CORPUSCULAR VOLUME 95.9 FL (81.0-99.0); MEAN PLATELET VOLUME 6.2 FL (7.4-10.4); PLATELET COUNT 666 /CUMM (130-400); PT 32.4 SEC (9.4-12.5); RBC DISTRIBUTION WIDTH 13.6 % (11.5-14.5); RED BLOOD CELL CT 3.93 /CUMM (4.20-5.40)
[2017-02-05 07:21] LABS: WHITE BLOOD CELL COUNT 15.1 /CUMM (4.8-10.8)
[2017-02-05 07:31] VITALS: BP 124/72
--- NOTE | 2017-02-05 08:40 | PN- Housestaff ---
Subjective Follow-up For: Right femoral neck fracture Subjective: Patient seen and examined. She is seen lying flat in bed resting comfortably. She appears to be in no acute distress. She is no longer an bilateral soft upper extremity strengths. She continues to remain delirious, she is not oriented to person/place/time. When asked if she has any pain or any complaints she begins to mumble. Review of systems is unobtainable. No overnight events reported. Review of Systems Constitutional: Reports: see HPI. Objective Last 24 Hrs of Vital Signs/I&O Vital Signs Date Time Temp Pulse Resp B/P Pulse O2 O2 Flow FiO2 Ox Delivery Rate 02/05 1408 99.3 69 18 132/60 98 Room Air 02/05 1000 94 Room Air 02/05 0919 124/72 02/05 0731 99.8 100 18 12472 94 Room Air 02/04 2151 98.6 90 162/70 90 Room Air 02/04 1509 98.1 78 93 130/62 16 Room Air Intake & Output 02/05 1600 02/05 0800 02/05 0000 Intake Total 950 1080 465 Output Total 975 -25 1080 465 Intake, IV 500 600 225 Intake, Oral 450 480 240 Output, Urine 975 Physical Exam General Appearance: No Acute Distress Other Physical Findings: General - well developed, well nourished elderly woman appearing agitated and confused HEENT - NCAT, EOMI, PERRL, anicteric sclera CVS - S1, S2 w/o m/g/r Resp - CTA bilaterally GI - Soft, nontender, nondistended, bowel sounds intact Neuro - AAOx0, agitated/confused, CN II - XII grossly intact Ext - normal pulses, no cyanosis/clubbing/edema, bilateral soft upper extremity restraints in place Current Medications: Current Medications Sig/Wisam Start time Last Medication Dose Route Stop Time Status Admin Acetaminophen 650 MG .STK-MED ONE 02/05 0539 DC PO 02/05 0540 Acetaminophen 650 MG Q6P PRN 02/03 2215 AC 02/05 PO 0600 Amlodipine Besylate 5 MG DAILY 02/04 1000 AC 02/05 PO 0919 Atenolol 50 MG DAILY 02/04 1000 AC 02/05 PO 0919 Dextrose/Sodium 1,000 ML Q20H 02/05 1215 AC Chloride IV Dextrose/Sodium 1,000 ML Q13H 02/04 0200 DC 02/05 Chloride IV 0439 Diphenhydramine HCl 25 MG Q6P PRN 02/03 2215 DC 02/04 IV 0109 Furosemide 40 MG DAILY 02/04 1000 AC 02/05 PO 0919 Heparin Sodium 5,000 UNIT Q8 02/04 0600 AC 02/05 (Porcine) SC 1408 Levothyroxine Sodium 0.112 MG DAILY AC 02/04 0700 AC 02/05 PO 0600 Morphine Sulfate 2 MG Q4P PRN 02/03 2215 DC 02/04 IV 1431 Oxycodone HCl 5 MG Q8P PRN 02/05 1200 AC PO Oxycodone HCl 5 MG Q6P PRN 02/03 2215 DC 02/04 PO 1226 Polyethylene Glycol 17 GM DAILY 02/04 1000 AC 02/05 PO 0919 Potassium Chloride 40 MEQ ONCE ONE 02/05 1200 DC 02/05 PO 02/05 1201 1252 Potassium Chloride 40 MEQ ONCE ONE 02/04 1800 DC 02/04 PO 02/04 1801 2145 Prochlorperazine 10 MG Q6P PRN 02/03 2215 AC IV Ramelteon 8 MG QPM PRN 02/04 1800 AC 02/04 PO 2145 Senna/Docusate Sodium 2 TAB AT BEDTIME 02/04 2200 AC 02/04 PO 2145 Warfarin Sodium 5 MG COUMADIN 1700 ONE 02/04 1700 DC 02/04 PO 02/04 1701 1811 Last 24 Hrs of Lab/Dieudonne Results Last 24 Hrs of Labs/Mics: Laboratory Tests 02/05/17 0625: Anion Gap 4 L, Estimated GFR > 60, BUN/Creatinine Ratio 20.0, PT 32.4 H, INR 3.12 H, CBC w Diff NO MAN DIFF REQ, RBC 3.93 L, MCV 95.9, MCH 32.4 H, RDW 13.6, MPV 6.2 L, Gran % 85.1 H, Lymphocytes % 6.8 L, Monocytes % 6.9, Eosinophils % 0.7, Basophils % 0.5, Absolute Granulocytes 12.9 H, Absolute Lymphocytes 1.0 L, Absolute Monocytes 1.0 H, Absolute Eosinophils 0.1, Absolute Basophils 0.1, PUBS MCHC 33.8 Microbiology 02/05 1335 URINE ROUT: Urine Culture - COLB Assessment/Plan Assessment: Patient continues to remain altered and confused after the surgical fixation of her right femoral neck fracture. Patient had urinary retention of 900 mL as demonstrated with bladder scanner for which she was straight cathed. Urine was sent for analysis and culture. Patient has persistent leukocytosis, chest x-ray was ordered for assessment of possible pulmonary disease. Delirium triggers are to be avoided inpatient for her persistent altered mental status. 5 mg of Coumadin was given yesterday with a resulting INR of 3.12 today, Coumadin is held. Post Operative Delerium / History of CVA with rided sided deficit Patient is not oriented to person/place/time and is confused after surgery. This is most likely secondary to the anesthesia utilized during the procedure. Patient dose not exhibit any obvious neurologic deficits. Patient received Haldol and Zyprexa for worsening noctural agitation with minimal benefit. -Avoid excessive sedation and delerium triggers -Avoid benodiazpenes / anticholingergic side effects -Restraints as necessary for pulling at IVs or attempts at unsafe ambulation -Minimize night times awakenings -Rozerm 8mg PO QHS for sleep Right Displaced Subcapital proximal Femoral Fracture S/P Hemiarthroplasty Patient sustained an unwitness mechnical fall for which she sustained a right hip fracture. -General Medicine -S/P Right hemiarthroplasty, POD #2 -Pain Control -D5 1/2 while not eating -Ortho consult -PT evaluation -Daily INR, dose coumadin accordingly Hypertension -Amlodipine 5mg PO Daily -Atenolol 50mg PO Daily -Lasix 40mg PO Daily Hypothyroidism-Levothyroxine 112mcg PO Daily Pain Plan-Acetaminophen/Oxycodone/Morphine; use sparingly Bowel Regimen- Senokot S / Miralax Diet-Clear Liquid Diet, advance as tolerated DVT PPx- subcutaneous heparin Code Status - DNR/DNI Problem List: 1. Hip fracture Pain Ratin Pain Location: Right hip Pain Goal: Pain 4 or less Pain Plan: See assessment Tomorrow's Labs & Rationales: CBC-postop/infection surveillance BEP-hypokalemia Consulting Request: Consulting Specialty: Orthopedics
--- NOTE | 2017-02-05 10:16 | PN- Orthopedic ---
See Addendum Subjective Subjective: Patient has been experiencing some postoperative delirium, but seems to be showing some slight signs of improvement. Restraints were removed. She is receiving Tylenol only for pain. She seems to be more cooperative at this time. She denies pain, except during dressing change. Objective Vital Signs and I&Os Vital Signs Date Time Temp Pulse Resp B/P Pulse O2 O2 Flow FiO2 Ox Delivery Rate 02/05 0919 124/72 02/05 0731 99.8 100 18 124/72 94 Room Air 02/04 2151 98.6 90 162/70 90 Room Air 02/04 1509 98.1 78 93 130/62 16 Room Air Intake & Output 02/05 1600 02/05 0800 02/05 0000 02/04 1600 02/04 0800 02/04 0000 Intake Total 0482 071 9385 600 Output Total 100 300 Balance 2918 348 9559 500 -300 Intake, IV 600 225 600 600 Intake, Oral 107 703 9703 Number 0 Bowel Movements Output, Urine 100 300 Patient 107 lb Weight Physical Exam: Gen.: Patient is resting, but easily arousable. She is oriented to person, but not place or time. She is more cooperative at this time and follows some commands. Extremities: The right hip dressing was changed. The wound remains clean, dry, and intact with mundo in place. There is no surrounding erythema or drainage. There is mild to moderate thigh swelling, within expected postoperative limits. Right lower extremity is internally rotated and there appears to be of slight foot drop. Strength exam is limited due to mild confusion, but she is able to move both feet against gravity. Results Last 48 Hours of Labs: Laboratory Tests 02/05 02/04 0625 0455 Chemistry Sodium (137 - 145 mmol/L) 138 140 Potassium (3.5 - 5.1 mmol/L) 3.4 L 3.4 L Chloride (98 - 107 mmol/L) 103 101 Carbon Dioxide (22 - 30 mmol/L) 31 H 30 Anion Gap (5 - 16) 4 L 8 BUN (7 - 17 mg/dL) 10 8 Creatinine (0.5 - 1.0 mg/dL) 0.5 0.6 Estimated GFR (>60 ml/min) > 60 > 60 BUN/Creatinine Ratio (7 - 25 %) 20.0 13.3 Coagulation PT (9.4 - 12.5 SEC) 32.4 H 14.9 H INR (0.90 - 1.19) 3.12 H 1.42 H Hematology CBC w Diff NO MAN DIFF REQ NO MAN DIFF REQ WBC (4.8 - 10.8 /CUMM) 15.1 H 14.8 H RBC (4.20 - 5.40 /CUMM) 3.93 L 4.12 L Hgb (12.0 - 16.0 G/DL) 12.8 13.3 Hct (37 - 47 %) 37.7 39.7 MCV (81.0 - 99.0 FL) 95.9 96.5 MCH (27.0 - 31.0 PG) 32.4 H 32.3 H RDW (11.5 - 14.5 %) 13.6 13.5 Plt Count (130 - 400 /CUMM) 666 H 692 H MPV (7.4 - 10.4 FL) 6.2 L 6.3 L Gran % (42.2 - 75.2 %) 85.1 H 92.2 H Lymphocytes % (20.5 - 51.1 %) 6.8 L 3.6 L Monocytes % (1.7 - 9.3 %) 6.9 4.1 Eosinophils % (0 - 5 %) 0.7 0.1 Basophils % (0.0 - 2.0 %) 0.5 0 L Absolute Granulocytes (1.4 - 6.5 /CUMM) 12.9 H 13.7 H Absolute Lymphocytes (1.2 - 3.4 /CUMM) 1.0 L 0.5 L Absolute Monocytes (0.10 - 0.60 /CUMM) 1.0 H 0.6 Absolute Eosinophils (0.0 - 0.7 /CUMM) 0.1 0 Absolute Basophils (0.0 - 0.2 /CUMM) 0.1 0 PUBS MCHC (33.0 - 37.0 G/DL) 33.8 33.4 Assessment/Plan Assessment/Plan Patient is an 86-year-old female who is now postoperative day #2 status post right hemiarthroplasty for hip fracture. She has been expressing some postoperative delirium, which is slightly improving. Plan: -Dressing was changed today and will looks good. Continue dry dressing changes once daily. -Continue physical therapy for mobilization as patient tolerates. She can weight-bear as tolerated. -Coumadin for DVT prophylaxis. Titrate dose to keep INR 2-3. It is 3.12 today ( from 1.42 yesterday) after only 5 mg of Coumadin. Consider holding today and decreasing dose tomorrow. -Pain control with Tylenol only. Limit use of narcotics, benzos due to delerium. -Replete K. -Continue medical management per primary team.
--- NOTE | 2017-02-05 12:25 | PN- Att Addend ---
Attending Addendum Attending Brief Note Patient remains altered and confused after the surgical fixation of her right femoral neck fractures. Restraints were discontinued this afternoon as patient appeared more calm. Present in the room this afternoon at the patients two daughters whom have questions about their mothers clinical condition. Delerium triggers are to be avoid, including benzodiazepines, anticholinergic medications and excessive noctural disturbances. Coumadin was dosed today for a subtherapeutic INR. ROS otherwise could not be obtained daughter is present at the bedside Intake & Output 02/05 1600 02/05 0800 02/05 0000 Intake Total 1080 465 Output Total Balance 1080 465 Intake, IV 600 225 Intake, Oral 480 240 Current Medications Sig/Wisam Start time Last Medication Dose Route Stop Time Status Admin Acetaminophen 650 MG Q6P PRN 02/03 2215 AC 02/05 PO 0600 Amlodipine Besylate 5 MG DAILY 02/04 1000 AC 02/05 PO 0919 Atenolol 50 MG DAILY 02/04 1000 AC 02/05 PO 0919 Dextrose/Sodium 1,000 ML Q20H 02/05 1215 AC Chloride IV Dextrose/Sodium 1,000 ML Q13H 02/04 0200 DC 02/05 Chloride IV 0439 Diphenhydramine HCl 25 MG Q6P PRN 02/03 2215 DC 02/04 IV 0109 Furosemide 40 MG DAILY 02/04 1000 AC 02/05 PO 0919 Heparin Sodium 5,000 UNIT Q8 02/04 0600 AC 02/05 (Porcine) SC 0600 Levothyroxine Sodium 0.112 MG DAILY AC 02/04 0700 AC 02/05 PO 0600 Morphine Sulfate 2 MG Q4P PRN 02/03 2215 DC 02/04 IV 1431 Oxycodone HCl 5 MG Q8P PRN 02/05 1200 AC PO Oxycodone HCl 5 MG Q6P PRN 02/03 2215 DC 02/04 PO 1226 Polyethylene Glycol 17 GM DAILY 02/04 1000 AC 02/05 PO 0919 Potassium Chloride 40 MEQ ONCE ONE 02/05 1200 DC PO 02/05 1201 Potassium Chloride 40 MEQ ONCE ONE 02/04 1800 DC 02/04 PO 02/04 1801 2145 Prochlorperazine 10 MG Q6P PRN 02/03 2215 AC IV Ramelteon 8 MG QPM PRN 02/04 1800 AC 02/04 PO 2145 Senna/Docusate Sodium 2 TAB AT BEDTIME 02/04 2200 AC 02/04 PO 2145 Warfarin Sodium 5 MG COUMADIN 1700 ONE 02/04 1700 DC 02/04 PO 02/04 1701 1811 Laboratory Tests 02/05 02/04 0625 0455 Chemistry Sodium (137 - 145 mmol/L) 138 140 Potassium (3.5 - 5.1 mmol/L) 3.4 L 3.4 L Chloride (98 - 107 mmol/L) 103 101 Carbon Dioxide (22 - 30 mmol/L) 31 H 30 Anion Gap (5 - 16) 4 L 8 BUN (7 - 17 mg/dL) 10 8 Creatinine (0.5 - 1.0 mg/dL) 0.5 0.6 Estimated GFR (>60 ml/min) > 60 > 60 BUN/Creatinine Ratio (7 - 25 %) 20.0 13.3 Coagulation PT (9.4 - 12.5 SEC) 32.4 H 14.9 H INR (0.90 - 1.19) 3.12 H 1.42 H Hematology CBC w Diff NO MAN DIFF REQ NO MAN DIFF REQ WBC (4.8 - 10.8 /CUMM) 15.1 H 14.8 H RBC (4.20 - 5.40 /CUMM) 3.93 L 4.12 L Hgb (12.0 - 16.0 G/DL) 12.8 13.3 Hct (37 - 47 %) 37.7 39.7 MCV (81.0 - 99.0 FL) 95.9 96.5 MCH (27.0 - 31.0 PG) 32.4 H 32.3 H RDW (11.5 - 14.5 %) 13.6 13.5 Plt Count (130 - 400 /CUMM) 666 H 692 H MPV (7.4 - 10.4 FL) 6.2 L 6.3 L Gran % (42.2 - 75.2 %) 85.1 H 92.2 H Lymphocytes % (20.5 - 51.1 %) 6.8 L 3.6 L Monocytes % (1.7 - 9.3 %) 6.9 4.1 Eosinophils % (0 - 5 %) 0.7 0.1 Basophils % (0.0 - 2.0 %) 0.5 0 L Absolute Granulocytes (1.4 - 6.5 /CUMM) 12.9 H 13.7 H Absolute Lymphocytes (1.2 - 3.4 /CUMM) 1.0 L 0.5 L Absolute Monocytes (0.10 - 0.60 /CUMM) 1.0 H 0.6 Absolute Eosinophils (0.0 - 0.7 /CUMM) 0.1 0 Absolute Basophils (0.0 - 0.2 /CUMM) 0.1 0 PUBS MCHC (33.0 - 37.0 G/DL) 33.8 33.4 Microbiology Date/Time Procedure - Status Source Growth 02/02 2105 Urine Culture - COMP URINE ROUT Vital Signs Date Time Temp Pulse Resp B/P Pulse O2 O2 Flow FiO2 Ox Delivery Rate 02/05 1000 94 Room Air 02/05 0919 124/72 02/05 0731 99.8 100 18 124/72 94 Room Air 02/04 2151 98.6 90 162/70 90 Room Air 02/04 1509 98.1 78 93 130/62 16 Room Air IMPRESSION 86-year-old with history of right-sided CVA, dementia, hypertension having weakness 2 weeks prior to this presentation and possible UTI presenting status post fall likely mechanical. S/p surg with post op delirum with underlying dementia Leukocytosis and thrombocytosis S/p surg Hypothyroid on meds Plan Follow off antibiotics Minimal pain meds Continue other home meds Warfain Cont levoxyl Once she is eating then can dc ivf
[2017-02-05 14:08] VITALS: BP 132/60
--- NOTE | 2017-02-05 18:47 | RADIOLOGY REPORT ---
EXAMINATION: XR PORTABLE CHEST CLINICAL INFORMATION: Altered mental status. Evaluate for pneumonia. COMPARISON: AP chest radiograph dated 02/02/2017. TECHNIQUE: Portable AP view of the chest was obtained. FINDINGS: There are new patchy airspace opacities adjacent to the left hilum, which could represent early pneumonia. The right lung is clear. No pleural effusion or pneumothorax. Unchanged mild enlargement of the cardiac mediastinal silhouette. The visualized osseous structures are unremarkable. IMPRESSION: New patchy airspace opacities adjacent to the left hilum, which could represent early pneumonia.
[2017-02-05 22:47] VITALS: BP 170/88
[2017-02-05 23:59] VITALS: BP 150/68
[2017-02-06 06:21] VITALS: BP 158/60
--- NOTE | 2017-02-06 07:21 | PN- Orthopedic ---
Subjective Subjective: The patient was seen this morning postoperatively day #3. She is alert but difficult to understand as she mumbles. She does nod yes when asked about her being in pain. Objective Vital Signs and I&Os Vital Signs Date Time Temp Pulse Resp B/P Pulse O2 O2 Flow FiO2 Ox Delivery Rate 02/06 0621 97.0 89 22 158/60 94 02/06 0000 Room Air 02/05 2359 150/68 02/05 2247 98.3 94 21 170/88 93 02/05 1408 99.3 69 18 132/60 98 Room Air 02/05 1000 94 Room Air 02/05 0919 124/72 02/05 0731 99.8 100 18 124/72 94 Room Air Intake & Output 02/06 0800 02/06 0000 02/05 1600 02/05 0800 02/05 0000 02/04 1600 Intake Total 400 406 831 4319 465 2040 Output Total 400 975 Balance 0 200 -25 3268 039 4749 Intake, IV 400 500 600 225 600 Intake, Oral 200 450 083 495 9002 Number 0 Bowel Movements Output, Urine 400 975 Patient 107 lb Weight Physical Exam: Gen.: Alert/minimally verbal reporting pain in her leg. Skin: Warm and dry Extremities: Bilateral lower extremities are warm without calf tenderness or significant edema. Gross motor and sensory are intact. Right hip surgical incision is clean, dry, intact without signs of infection. Assessment/Plan Assessment/Plan Assessment: 86-year-old female status post right hemiarthroplasty postoperative day #3. The patient's hospital course has been hampered with bouts of delirium. Recommendations: Continue to work with physical therapy Follow-up morning laboratory studies and dose Coumadin to reach an INR between 2 and 3 Reassess pain management Daily dry dressing change to surgical site Discharged to short-term rehabilitation when medically stable Surgical clips should be removed on postoperative day #15 and incision reinforced with Steri-Strips Follow-up in the office in approximately 3 weeks
--- NOTE | 2017-02-06 07:22 | PN- Housestaff ---
Subjective Follow-up For: Right femoral neck fracture status post hemiarthroplasty POD#3 Subjective: Patient was seen and examined this morning, no overnight events reported by the nurse, patient remained calm on slept overnight. Patient is alert oriented to self, reports pain of the right hip "pain is getting better every day", she is able to answer questions appropriately. She denies chest pain, abdominal pain. Vital signs are stable, MAXIMUM TEMPERATURE 99.8, chest x-ray was obtained yesterday that showed some new patchy air space opacities adjacent to left hilum which could represent early pneumonia. Patient maintained to have leukocytosis and thrombocytosis, denied cough. Review of Systems Constitutional: Reports: see HPI. Objective Last 24 Hrs of Vital Signs/I&O Vital Signs Date Time Temp Pulse Resp B/P Pulse O2 O2 Flow FiO2 Ox Delivery Rate 02/06 0621 97.0 89 22 158/60 94 02/06 0000 Room Air 02/05 2359 150/68 02/05 2247 98.3 94 21 170/88 93 02/05 1408 99.3 69 18 132/60 98 Room Air 02/05 1000 94 Room Air 02/05 0919 124/72 Intake & Output 02/06 1600 02/06 0800 02/06 0000 Intake Total 400 200 Output Total 400 Balance 0 200 Intake, IV 400 Intake, Oral 200 Output, Urine 400 Physical Exam General Appearance: Alert, Cooperative, No Acute Distress Skin: No Rashes, No Breakdown, No Significant Lesion HEENT: Atraumatic, PERRLA, EOMI, Mucous Membr. moist/pink Neck: Supple Cardiovascular: Regular Rate, Normal S1, Normal S2, No Murmurs Lungs: Clear to Auscultation, Normal Air Movement Abdomen: Normal Bowel Sounds, Soft, No Tenderness Neurological: Normal Speech, Strength at 5/5 X4 Ext, Normal Tone, Sensation Intact, Cranial Nerves 3-12 NL, Reflexes 2+ Extremities: No Clubbing, No Cyanosis, No Edema, Normal Pulses Assessment/Plan Assessment: Ms. Hancock is 86 year old female with past medical history significant for CVA with right-sided deficit, hypertension, hypothyroidism who presented to ED after an unwitnessed fall from standing height STR and sustained right femoral neck fracture. Post Operative Delerium / History of CVA with rided sided deficit -Patient has baseline of dementia. On admission, she was oriented to self only. After surgery patient had postoperative delirium, patient had attempt removing IV line and Pak catheter. -Resolved -Avoid excessive sedation and delerium triggers -Avoid benodiazpenes / anticholingergic side effects -Restraints as necessary for pulling at IVs or attempts at unsafe ambulation -Minimize night times awakenings -Rozerm 8mg PO QHS for sleep -Patient has a MAXIMUM TEMPERATURE of 99.8, chest x-ray that obtained yesterday showed possible new onset of left sided pneumonia, patient denied cough -Leukocytosis and thrombocytosis on admission Right Displaced Subcapital proximal Femoral Fracture S/P Hemiarthroplasty Patient sustained an unwitness mechnical fall for which she sustained a right hip fracture. -General Medicine -S/P Right hemiarthroplasty, POD #3 -Pain Control Tramadol by mouth 50 mg every 6 when necessary, acetaminophen 650 every 6 when necessary -Continue D5 half-normal saline 50 mL per hour, encouraged oral intake -Ortho consult was obtained, thanks for recommendation -PT evaluation -Daily INR, dose coumadin accordingly Hypertension -Amlodipine 5mg PO Daily -Atenolol 50mg PO Daily -Lasix 40mg PO Daily Hypothyroidism -Levothyroxine 112mcg PO Daily Pain Plan Acetaminophen/Oxycodone Bowel Regimen- Senokot S / Miralax/ Dulcolax Suppository Diet full liquid diet, advance as tolerated, swallow evaluation today DVT PPx subcutaneous heparin Code Status DNR/DNI Consultation orthopedic, PT Problem List: 1. Leukocytosis, unspecified 2. Hip fracture Pain Ratin Pain Location: Right hip Pain Goal: Pain 4 or less Pain Plan: Tramadol by mouth 50 mg every 6 when necessary, acetaminophen 650 every 6 when necessary Tomorrow's Labs & Rationales: INR Consulting Request: Consulting Specialty: Orthopedics
[2017-02-06 08:22] LABS: PT 35.7 SEC (9.4-12.5)
[2017-02-06 09:05] LABS: ABSOLUTE BASOPHIL COUNT 0.1 /CUMM (0.0-0.2); ABSOLUTE EOSINOPHIL COUNT 0.2 /CUMM (0.0-0.7); ABSOLUTE GRANULOCYTE CT 10.3 /CUMM (1.4-6.5); ABSOLUTE LYMPH COUNT 1.5 /CUMM (1.2-3.4); ABSOLUTE MONOCYTE COUNT 0.9 /CUMM (0.10-0.60); BASOPHIL % 0.5 % (0.0-2.0); EOSINOPHIL % 1.8 % (0-5); GRANULOCYTE % 79.5 % (42.2-75.2); HEMATOCRIT 37.9 % (37-47); MEAN CORPUSCULAR HGB 32.1 PG (27.0-31.0); MEAN CORPUSCULAR HGB CONC 33.4 G/DL (33.0-37.0); MEAN CORPUSCULAR VOLUME 96.1 FL (81.0-99.0); MEAN PLATELET VOLUME 6.2 FL (7.4-10.4); PLATELET COUNT 759 /CUMM (130-400); RBC DISTRIBUTION WIDTH 13.7 % (11.5-14.5); RED BLOOD CELL CT 3.94 /CUMM (4.20-5.40)
--- NOTE | 2017-02-06 09:14 | Patient Discharge Instructions ---
Discharge Instructions General Discharge Information You were seen/treated for: Right Displaced Subcapital proximal Femoral Fracture S/P Hemiarthroplasty Special Instructions: 1.Follow-up in the ORTHOPEDICS in 3 weeks. 2.Surgical clips should be removed on postoperative day #15 and incision reinforced with Steri-Strips. 3. Please follow up with PCP within 2 weeks of discharge. 4. Please check INR on 02/09 and dose coumadin accordingly( currently being held due to supratherapeutic INR Diet Recommended Diet: Diabetic Activity Full Activity/No Limits: Yes (as tolerated) Acute Coronary Syndrome Inclusion Criteria At DC or during hospital stay patient has or had the following: ACS DIAGNOSIS No Discharge Core Measures Meds if any: Prescribed or Continued at Discharge Meds if any: NOT Prescribed or Continued at Discharge Congestive Heart Failure Inclusion Criteria At DC or during hospital stay patient has or had the following: CHF DIAGNOSIS No Discharge Core Measures Meds if any: Prescribed or Continued at Discharge Meds if any: NOT Prescribed or Continued at Discharge Cerebrovascular accident Inclusion Criteria At DC or during hospital stay patient has or had the following: CVA/TIA Diagnosis No Discharge Core Measures Meds if any: Prescribed or Continued at Discharge Meds if any: NOT Prescribed or Continued at Discharge Venous thromboembolism Inclusion Criteria VTE Diagnosis No VTE Type NONE VTE Confirmed by (Test) NONE Discharge Core Measures - Per Current guidelines, there needs to be overlap - treatment for the first 5 days of Warfarin therapy. - If discharged on Warfarin prior to 5 days of - overlap therapy, the patient will need to be - assessed for post discharge needs including - *Post discharge parental anticoagulation - *Warfarin and/or parental anticoagulation education - *Follow up date to check INR post discharge At least 5 days overlap therapy as Inpatient No Meds if any: Prescribed or Continued at Discharge Note: Overlap Therapy is Warfarin and Anticoagulant Meds if any: NOT Prescribed or Continued at Discharge
[2017-02-06] MEDS ORDERED: COUMADIN5 M2 PO (09:21)
--- NOTE | 2017-02-06 09:24 | Discharge Summary ---
Visit Information Visit Dates Admission Date: 02/02/17 Discharge Date: 02/07/2017 Hospital Course Course Attending Physician: DESTINY GARCIA MD Primary Care Physician: RIGO JAMESON MD Consulting Request: Consulting Specialty: Orthopedics Hospital Course: This is an 86-year-old female past medical history significant for CVA with right-sided deficit, hypertension, hypothyroidism, recent cellulitis, who comes to [facility] s/p unwitnessed fall from standing height in the ECF. ED Workup shows: Chest x-ray with no acute intrathoracic abnormality. CT negative for hemorrhage. CT of spine pelvis and extremity showed displaced subcapital right proximal femur fracture. Vitals: 98.7, 81, 14, 198/81, 97. INR 1.13. CBC: Hemoglobin 14.9, hematocrit 44.5. White count 21.2 BUN/creatinine 17/ 0.6. Negative LFTs. Hip x-ray:Displaced subcapital right proximal femoral fracture No pneumonia or pneumothorax Patient was treated in the hospital for: #Fall with displaced subcapital right proximal femur fracture: Patient was evaluated by orthopedic surgery who decided to take the patient for surgery after being medically cleared. Patient had leukocytosis on presentation which was likely reactive and trended down. She had moderate risk for perioperative cardiac events and was medically cleared by PCP for surgery. Patient underwent right hip arthroplasty on 02/03/2017. Patient tolerated the procedure well but however after surgery she became delirious and agitated pulling out her lines and Pak catheter. She was placed on restraints and administered Zyprexa and Haldol. This was most likely anesthesia related. Her labs were checked regularly and by mouth intake was encouraged. Her dressings were changed by surgical PA. Excessive sedation and delirium triggers were avoided. Rozerm 8mg PO QHS for sleep was used at night. Pain Control Tramadol by mouth 50 mg every 6 when necessary, acetaminophen 650 every 6 when necessary. Patient was able to get out of bed with physical therapy. Patient was put on Coumadin for DVT prophylaxis post the surgery. She has been receiving 5 mg Coumadin every day as per INR. Patient will be discharged to [facility] for regaining strength and follow-up with Anais SINGLETON,Maia in 3 weeks. Recheck INR on 02/09 and readjust Coumadin dosing. Please check INR on 02/09 and dose coumadin accordingly( currently being held due to supratherapeutic INR. Coumadin to continue till 03/2017 (6 week total ). Surgical clips should be removed on postoperative day #15 and incision reinforced with Steri-Strips. #Post Operative Delerium/ ? [place] PNA : Patient has baseline of dementia. On admission, she was oriented to self only. After surgery patient had postoperative delirium, patient had attempt removing IV line and Pak catheter. She received IV Haldol and Zyprexa and was put on restraints. Excessive sedation and delirium triggers provided. Benzos and anticholinergics were avoided. Rezarem was used for sleep at night . Patient has a MAXIMUM TEMPERATURE of 99.8, UA is negative however x-ray shows retrocardiac infiltrate. Patient had no fevers/no oxygen requirement but had persistent leukocytosis since admission. She was watched off antibiotics, hydrated with IV fluids and this will perform a swallow eval was conducted to rule out aspiration pneumonia. Swallow evaluation recommendeed regular food with thin liquids. #Hypertension: Continued on home medication Lasix and Norvasc was added #Hypothyroidism: Continued on Synthroid Pain Plan Acetaminophen/Oxycodone/ Tramadol Bowel Regimen- Senokot S / Miralax/ Dulcolax Suppository Diet regular diet, regular and thin liquid DVT PPx subcutaneous heparin/ coumadin after surgery Code Status DNR/DNI Complications: After surgery patient had postoperative delirium, patient had attempt removing IV line and Pak catheter. She received IV Haldol and Zyprexa and was put on restraints. Excessive sedation and delirium triggers provided. Benzos and anticholinergics were avoided. Rezarem was used for sleep at night Allergies: Coded Allergies: Penicillins (UNKNOWN 02/02/17) red dye (UNKNOWN 02/02/17) Disposition Summary Disposition Principal Diagnosis: Right Displaced Subcapital proximal Femoral Fracture S/P Hemiarthroplasty Additional Diagnosis: Post Operative Delerium Discharge Disposition: SNF Discharge Instructions General Discharge Information Code Status: Do Not Resucitate/Intubat Patient's Diet: Regular diet Patient's Activity: As tolerated Follow-Up Instructions/Appts: 1.Follow-up in the ORTHOPEDICS in 3 weeks. 2.Surgical clips should be removed on postoperative day #15 and incision reinforced with Steri-Strips. 3. Please follow up with PCP within 2 weeks of discharge. 4. Please check INR on and dose coumadin accordingly Medications at Discharge Discharge Medications: Continue taking these medications: Furosemide (Furosemide) 40 MG TABLET 1 Tablet ORAL DAILY Qty = 90 Atenolol (Atenolol) 50 MG TABLET 1 Tablet ORAL DAILY Qty = 90 Amlodipine Besylate (Amlodipine Besylate) 5 MG TABLET 1 Tablet ORAL DAILY Qty = 30 Levothyroxine Sodium (Levothyroxine Sodium) 112 MCG TABLET 1 Tablet ORAL DAILY Qty = 90 Loratadine (Claritin) 10 MG TABLET 1 Tablet ORAL as needed for ALLERGIES Mometasone Furoate (Nasonex) 50 MCG SPRAY.PUMP 1-2 [place] In the nose As Directed as needed for ALLERGIES/NASAL CONGESTION Docusate Sodium (Colace) 100 MG CAPSULE 1 Capsule ORAL DAILY Bisacodyl (Laxative) 5 MG TABLET 1 Tablet ORAL As Directed Start taking the following new medications: Acetaminophen (Tylenol) 325 MG TABLET 650 Milligram ORAL EVERY SIX HOURS NEEDED as needed for PAIN SCALE 1-6 Qty = 30 No Refills Warfarin Sodium (Coumadin) 5 MG TABLET 1 Tablet ORAL DAILY Qty = 42 No Refills Instructions: check INR on 02/09 and restart coumadin Tramadol HCl (Tramadol HCl) 50 MG TABLET 50 Milligram ORAL EVERY SIX HOURS as needed for PAIN SCALE 7-10 (SEVERE) Qty = 10 No Refills Copies To: ANAIS SINGLETON,MAIA; DESTINY GARCIA MD Attending Review Statement Documenting Attending: DESTINY GARCIA MD
--- NOTE | 2017-02-06 09:30 | PN- Att Addend ---
Attending Addendum Attending Brief Note Patient confused and agitated General Appearance: Alert, No Acute Distress Skin: Grossly normal HEENT: PEERLA Neck: Supple, No JVD Cardiovascular: Regular Rate, Normal S1, Normal S2, No Murmurs Lungs: Clear to Auscultation, Normal Air Movement Abdomen: Normal Bowel Sounds, Soft, No Tenderness Neurological: Normal Speech, Strength at 5/5 X4 Ext, Cranial Nerves 3-12 NL, Reflexes 2+ Extremities: No Clubbing, No Cyanosis, No Edema Vascular: Normal Pulses Assessment Status post hip replacement day #3 complicated by postoperative delirium. UA is negative however x-ray shows retrocardiac infiltrate. However she has no fever, oxygen requirement and her leukocytosis that is improving. Low suspicion for clinical pneumonia however she will get a swallow evaluation today. Plan Discontinue oxycodone Start tramadol 50 mg every 6 hour when necessary pain severe, Tylenol for mild- to-moderate pain Swallow evaluation Follow off antibiotics IV hydration Continue other home meds DVT prophylaxis Current Medications Sig/Wisam Start time Last Medication Dose Route Stop Time Status Admin Acetaminophen 650 MG Q6P PRN 02/03 2215 AC 02/06 PO 0902 Amlodipine Besylate 5 MG DAILY 02/04 1000 AC 02/06 PO 0909 Atenolol 50 MG DAILY 02/04 1000 AC 02/06 PO 0909 Bisacodyl 10 MG DAILY PRN 02/06 0830 CAN FL Bisacodyl 10 MG DAILY PRN 02/06 0830 AC FL Dextrose/Sodium 1,000 ML Q20H 02/05 1215 AC 02/05 Chloride IV 1944 Dextrose/Sodium 1,000 ML Q13H 02/04 0200 DC 02/05 Chloride IV 0439 Diphenhydramine HCl 25 MG Q6P PRN 02/03 221 DC 02/04 IV 0109 Furosemide 40 MG DAILY 02/04 1000 AC 02/06 PO 0909 Heparin Sodium 5,000 UNIT Q8 02/04 0600 AC 02/06 (Porcine) SC 0514 Levothyroxine Sodium 0.112 MG DAILY AC 02/04 0700 AC 02/06 PO 0514 Morphine Sulfate 2 MG Q4P PRN 02/03 2215 DC 02/04 IV 1431 Oxycodone HCl 5 MG Q8P PRN 02/05 1200 AC 02/05 PO 1800 Oxycodone HCl 5 MG Q6P PRN 02/03 2215 DC 02/04 PO 1226 Polyethylene Glycol 17 GM DAILY 02/04 1000 AC 02/06 PO 0910 Potassium Chloride 40 MEQ ONCE ONE 02/05 1200 DC 02/05 PO 02/05 1201 1252 Prochlorperazine 10 MG Q6P PRN 02/03 221 AC IV Ramelteon 8 MG QPM PRN 02/04 1800 AC 02/04 PO 2145 Senna/Docusate Sodium 2 TAB AT BEDTIME 02/04 220 AC 02/05 PO 2122 Laboratory Tests 02/06 02/05 0648 1330 Chemistry Sodium (137 - 145 mmol/L) 140 Potassium (3.5 - 5.1 mmol/L) 3.6 Chloride (98 - 107 mmol/L) 106 Carbon Dioxide (22 - 30 mmol/L) 28 Anion Gap (5 - 16) 6 BUN (7 - 17 mg/dL) 11 Creatinine (0.5 - 1.0 mg/dL) 0.5 Estimated GFR (>60 ml/min) > 60 BUN/Creatinine Ratio (7 - 25 %) 22.0 Coagulation PT (9.4 - 12.5 SEC) 35.7 H INR (0.90 - 1.19) 3.44 H Hematology CBC w Diff NO MAN DIFF REQ WBC (4.8 - 10.8 /CUMM) 13.0 H RBC (4.20 - 5.40 /CUMM) 3.94 L Hgb (12.0 - 16.0 G/DL) 12.7 Hct (37 - 47 %) 37.9 MCV (81.0 - 99.0 FL) 96.1 MCH (27.0 - 31.0 PG) 32.1 H RDW (11.5 - 14.5 %) 13.7 Plt Count (130 - 400 /CUMM) 759 H MPV (7.4 - 10.4 FL) 6.2 L Gran % (42.2 - 75.2 %) 79.5 H Lymphocytes % (20.5 - 51.1 %) 11.5 L Monocytes % (1.7 - 9.3 %) 6.7 Eosinophils % (0 - 5 %) 1.8 Basophils % (0.0 - 2.0 %) 0.5 Absolute Granulocytes (1.4 - 6.5 /CUMM) 10.3 H Absolute Lymphocytes (1.2 - 3.4 /CUMM) 1.5 Absolute Monocytes (0.10 - 0.60 /CUMM) 0.9 H Absolute Eosinophils (0.0 - 0.7 /CUMM) 0.2 Absolute Basophils (0.0 - 0.2 /CUMM) 0.1 PUBS MCHC (33.0 - 37.0 G/DL) 33.4 Urines Urine Color (YEL,AMB,STR) YEL Urine Clarity (CLEAR) CLEAR Urine pH (5.0 - 8.0) 7.0 Ur Specific [place] (1.001 - 1.035) 1.015 Urine Protein (NEG,<30 MG/DL) NEG Urine Ketones (NEG) NEG Urine Nitrite (NEG) NEG Urine Bilirubin (NEG) NEG Urine Urobilinogen (0.1 - 1.0 EU/dl) 0.2 Ur Leukocyte Esterase (NEG) NEG Ur Microscopic SEDIMENT EXAMINED Urine RBC (0 - 5 /HPF) 1-3 Urine WBC (0 - 2 /HPF) RARE Ur Epithelial Cells (NONE,FEW) OCCAS Urine Crystals 4+ CA OX H Hyaline Casts (0/LPF) FEW H Urine Mucus (FEW,NONE) RARE Urine Hemoglobin (NEG) TRACE-INTACT Urine Glucose (N MG/DL) NEG Vital Signs Date Time Temp Pulse Resp B/P Pulse O2 O2 Flow FiO2 Ox Delivery Rate 02/06 0909 84 168/62 02/06 0621 97.0 89 22 158/60 94 02/06 0000 Room Air 02/05 2359 150/68 02/05 2247 98.3 94 21 170/88 93 02/05 1408 99.3 69 18 132/60 98 Room Air 02/05 1000 94 Room Air
[2017-02-06 10:00] VITALS: BP 118/48
[2017-02-06 13:50] VITALS: BP 130/52
[2017-02-06 15:38] VITALS: BP 146/60
[2017-02-06 21:59] VITALS: BP 138/58
[2017-02-07 06:53] VITALS: BP 138/60
[2017-02-07] MEDS ORDERED: COUMADIN5 M2 PO (07:15)
--- NOTE | 2017-02-07 07:25 | PN- Housestaff ---
Subjective Follow-up For: Right femoral neck fracture status post hemiarthroplasty POD#4 Subjective: Patient was seen and examined this morning, she is alert oriented to self, she is sitting comfortably on bed having breakfast, patient wants to be discharged today. Overnight no events, vital signs are stable. Review of Systems Constitutional: Reports: see HPI. Objective Last 24 Hrs of Vital Signs/I&O Vital Signs Date Time Temp Pulse Resp B/P Pulse O2 O2 Flow FiO2 Ox Delivery Rate 02/07 1449 98.4 64 20 138/60 02/07 0653 98.4 64 20 138/60 95 Room Air 02/06 2159 98.2 67 20 138/58 95 Room Air Intake & Output 02/07 1600 02/07 0800 02/07 0000 Intake Total 520 390 Output Total Balance 520 390 Intake, IV 400 150 Intake, Oral 120 240 Number 1 Bowel Movements Physical Exam General Appearance: Alert, Cooperative, No Acute Distress Skin: No Rashes, No Breakdown, No Significant Lesion HEENT: Atraumatic, PERRLA, EOMI, Mucous Membr. moist/pink Neck: Supple, No JVD Cardiovascular: Regular Rate, Normal S1, Normal S2, No Murmurs Lungs: Clear to Auscultation, Normal Air Movement Abdomen: Normal Bowel Sounds, Soft, No Tenderness Neurological: Normal Speech, Strength at 5/5 X4 Ext, Normal Tone, Sensation Intact, Cranial Nerves 3-12 NL, Reflexes 2+ Extremities: No Clubbing, No Cyanosis, No Edema, Normal Pulses Assessment/Plan Assessment: Ms. Hancock is 86 year old female with past medical history significant for CVA with right-sided deficit, hypertension, hypothyroidism who presented to ED after an unwitnessed fall from standing height STR and sustained right femoral neck fracture. Post Operative Delerium / History of CVA with rided sided deficit -Patient has baseline of dementia. On admission, she was oriented to self only. After surgery patient had postoperative delirium, patient had attempt removing IV line and Pak catheter. -Resolved -Avoid excessive sedation and delerium triggers -Avoid benodiazpenes / anticholingergic side effects -Restraints as necessary for pulling at IVs or attempts at unsafe ambulation -Minimize night times awakenings -Rozerm 8mg PO QHS for sleep -Patient has a MAXIMUM TEMPERATURE of 99.8, chest x-ray that obtained yesterday showed possible new onset of left sided pneumonia, patient denied cough -Leukocytosis and thrombocytosis on admission Right Displaced Subcapital proximal Femoral Fracture S/P Hemiarthroplasty Patient sustained an unwitness mechnical fall for which she sustained a right hip fracture. -General Medicine -S/P Right hemiarthroplasty, POD #4 -Pain Control Tramadol by mouth 50 mg every 6 when necessary for severe pain, acetaminophen 650 every 6 when necessary for mild to moderate pain -DC IV fluids -Ortho consult was obtained, thanks for recommendation -PT evaluation -Daily INR, dose coumadin accordingly, continue to hold coumadin for supratherapeutic INR -PT evaluation -Patient is for discharge today to [facility] -Patient passed swallow evaluation today Hypertension -Amlodipine 5mg PO Daily -Atenolol 50mg PO Daily -Lasix 40mg PO Daily Hypothyroidism -Levothyroxine 112mcg PO Daily Pain Plan Acetaminophen/Oxycodone Bowel Regimen- Senokot S / Miralax/ Dulcolax Suppository Diet regular diet DVT PPx subcutaneous heparin Code Status DNR/DNI Consultation orthopedic, PT Problem List: 1. Fall 2. Hip fracture Pain Ratin Pain Location: Right hip Pain Goal: Pain 4 or less Pain Plan: Tramadol 50 every 6 for severe pain Acetaminophen 650 every 6 for mild and moderate pain Tomorrow's Labs & Rationales: None Consulting Request: Consulting Specialty: Orthopedics
[2017-02-07] MEDS ORDERED: TYLENOL325 M1 PO (08:51)
[2017-02-07] MEDS ORDERED: TRAMADOL HCL50 M1 PO (08:51)
--- NOTE | 2017-02-07 09:31 | PN- Att Addend ---
Attending Addendum Attending Brief Note Patient is alert and appears about her baseline. General Appearance: Alert, No Acute Distress Skin: Grossly normal HEENT: PEERLA Neck: Supple, No JVD Cardiovascular: Regular Rate, Normal S1, Normal S2, No Murmurs Lungs: Clear to Auscultation, Normal Air Movement Abdomen: Normal Bowel Sounds, Soft, No Tenderness Neurological: Normal Speech, Strength at 5/5 X4 Ext, Cranial Nerves 3-12 NL, Reflexes 2+ Extremities: No Clubbing, No Cyanosis, No Edema Vascular: Normal Pulses Assessment Status post hip replacement day #4 complicated by postoperative delirium. Delirium has markedly improved today. Low suspicion for clinical pneumonia however she will get a swallow evaluation prior to discharge. Plan tramadol 50 mg every 6 hour when necessary pain severe, Tylenol for mild-to- moderate pain Swallow evaluation prior to discharge Continue other home meds Hold coumadin Patient stable for discharge Current Medications Sig/Wisam Start time Last Medication Dose Route Stop Time Status Admin Acetaminophen 650 MG .STK-MED ONE 02/06 1633 DC PO 02/06 1634 Acetaminophen 650 MG Q6P PRN 02/03 2215 AC 02/06 PO 1701 Amlodipine Besylate 5 MG DAILY 02/04 1000 AC 02/06 PO 0909 Atenolol 50 MG DAILY 02/04 1000 AC 02/06 PO 0909 Bisacodyl 10 MG DAILY PRN 02/06 0830 AC 02/06 SC 1105 Dextrose/Sodium 1,000 ML Q20H 02/05 1215 AC 02/07 Chloride IV 0602 Furosemide 40 MG DAILY 02/04 1000 AC 02/06 PO 0909 Heparin Sodium 5,000 UNIT Q8 02/04 0600 AC 02/07 (Porcine) SC 0601 Levothyroxine Sodium 0.112 MG DAILY AC 02/04 0700 AC 02/07 PO 0601 Oxycodone HCl 5 MG Q8P PRN 02/05 1200 DC 02/05 PO 1800 Patient Medication 1 ED .STK-MED ONE 02/06 1357 DC Teaching ED 02/06 1358 Polyethylene Glycol 17 GM DAILY 02/04 1000 AC 02/06 PO 0910 Prochlorperazine 10 MG Q6P PRN 02/03 2215 AC IV Ramelteon 8 MG QPM PRN 02/04 1800 AC 02/04 PO 2145 Senna/Docusate Sodium 2 TAB AT BEDTIME 02/04 2200 AC 02/06 PO 2111 Tramadol HCl 50 MG Q6 PRN 02/06 1045 AC PO Vital Signs Date Time Temp Pulse Resp B/P Pulse O2 O2 Flow FiO2 Ox Delivery Rate 02/07 0653 98.4 64 20 138/60 95 Room Air 02/06 2159 98.2 67 20 138/58 95 Room Air 02/06 1538 97.7 80 22 146/60 95 Room Air 02/06 1350 98.7 66 16 130/52 95 Room Air Room Air 02/06 1000 99.6 64 16 118/48 95 Room Air Room Air
[2017-02-07 12:26] LABS: PT 43.4 SEC (9.4-12.5)
--- NOTE | 2017-02-07 12:46 | PN- Orthopedic ---
Surgical Brief Attending Note Brief Attending Note: Patient less confused Wound clean and dry Calf is soft and nontender Status post right hip hemiarthroplasty Rehabilitation placement Coumadin per INR
[2017-02-07 14:49] VITALS: BP 138/60
== END 2017-02-07 15:15 | DRG 470 ==
LOC: ENRESERVDT → ENRESERVTM → ERH 18:00 → 2NB 20:35 → ENPENDDIS 20:35 → ERHI 20:35 → 2NB 22:28
PROVIDERS: Emergency Medicine; Internal Medicine Hematology & Oncology; Internal Medicine Interventional Cardiology; Physician Assistant Surgical; Student in an Organized Health Care Education/Training Program; ADMIT Internal Medicine
PROC: 0SRR0JA Replacement of Right Hip Joint, Femoral Surface with Synthetic Substitute, Uncemented, Open Approach (ICD-10-PCS; principal; 2017-02-03)
DX: S72.011A Unspecified intracapsular fracture of right femur, initial encounter for closed fracture (principal); I69.851 Hemiplegia and hemiparesis following other cerebrovascular disease affecting right dominant side; F05 Delirium due to known physiological condition; F03.90 Unspecified dementia, unspecified severity, without behavioral disturbance, psychotic disturbance, mood disturbance, and anxiety; Z91.81 History of falling; W18.30XA Fall on same level, unspecified, initial encounter; Y92.099 Unspecified place in other non-institutional residence as the place of occurrence of the external cause; I10 Essential (primary) hypertension; E03.9 Hypothyroidism, unspecified; D47.3 Essential (hemorrhagic) thrombocythemia; Z66 Do not resuscitate
CPT/HCPCS: 2NBP; 36415; 73501; 73502-RT; 81001; 82436; 87040; 87070; 87086; 88305; 90714; 93005; 93010; 97116-GO; 97161-GP; 97530-GO; J0131; J0690; J0780; J1100; J1200; J1630; J1644; J2405; J3490; J7042